=== PATIENT | female | born 1940 | race Caucasian/White ===

== ENCOUNTER 2019-06-06 20:10 | Emergency (ER) | payer MEDICARE, BC ==
[2019-06-06 20:19] VITALS: TEMP 98.2
--- NOTE | 2019-06-06 21:13 | ED ---
Chest Pain HPI - General Chief Complaint: Chest Pain Stated Complaint: CHEST TIGHTNESS Time Seen by Provider: 06/06/19 21:08 Source: patient Mode of arrival: ambulatory Limitations: no limitations - History of Present Illness Initial Comments: This patient is 78-year-old woman who presents to be evaluated for number of weeks of a feeling of tightness of her chest. She indicates the middle portion of the thoracic chest. She states it feels like it is wrapping around both sides. She has not noted worsening or relieving factors. The symptoms are co nstant and moderate intensity. She has not had any associated anginal symptoms, no dyspnea, diaphoresis, lightheadedness, palpitations or syncope. No nausea or vomiting. MD Complaint: chest pain -: week(s) Onset: during rest Pain Location: left chest, right chest Pain Radiation: none Severity: moderate Quality: tightness Consistency: constant Improves With: nothing Worsens With: nothing Treatments Prior to Arrival: none - Related Data Home Medications Medication Instructions Recorded Confirmed Alendronate Sodium [Fosamax] 70 mg PO MO 06/06/19 06/25/19 Armodafinil [Nuvigil] 50 mg PO DAILY 06/06/19 06/25/19 Carbidopa/Levodopa [Sinemet CR 1 tab PO TID 06/06/19 06/25/19 50-200 mg] Memantine HCl [Namenda] 5 mg PO DAILY 06/06/19 06/25/19 Metoclopramide HCl [Reglan] 5 mg PO DAILY PRN 06/06/19 06/25/19 Omeprazole [PriLOSEC] 20 mg PO DAILY 06/06/19 06/25/19 Rivastigmine 4.6MG/24Hr Patch 1 patch TRANSDERM DAILY 06/06/19 06/25/19 [Exelon 4.6MG/24Hr Patch] Allergies Allergy/AdvReac Type Severity Reaction Status Date / Time naproxen sodium [From Aleve] Allergy FIXED DRUG Verified 06/25/19 08:17 ERUPTION sulfamethoxazole Allergy FIXED DRUG Verified 06/25/19 08:17 [From Bactrim] ERUPTION trimethoprim [From Bactrim] Allergy FIXED DRUG Verified 06/25/19 08:17 ERUPTION Review of Systems ROS Statement: Those systems with pertinent positive or pertinent negative responses have been documented in the HPI. ROS Other: All systems not noted in ROS Statement are negative. Constitutional: Denies: fever, chills Respiratory: Denies: cough, dyspnea Cardiovascular: Reports: as per HPI, chest pain. Denies: palpitations, edema, syncope Gastrointestinal: Denies: abdominal pain, nausea, vomiting Genitourinary: Denies: dysuria, hematuria Musculoskeletal: Reports: as per HPI, back pain Skin: Denies: rash Neurological: Denies: headache, weakness, numbness EKG Findings - EKG Results: EKG: interpreted by ERMD, sinus rhythm, normal QRS, normal ST/T EKG shows: bradycardia (Rate 49 bpm) - Blocks, [place], Hypertrophy, ST Abn: QRS axis and voltage: left axis deviation (-30 to -90) Chamber hypertrophy or enlargement: left ventricular hypertrophy or enlargement (LVE) Past Medical History Past Medical History: Cancer, Dementia Additional Past Medical History / Comment(s): Breast CA, liver failure with resolution, Parkinsons, History of Any Multi-Drug Resistant Organisms: None Reported Past Surgical History: Hysterectomy Additional Past Surgical History / Comment(s): bilateral mastectomy, trigger finger right side Past Psychological History: No Psychological Hx Reported Smoking Status: Never smoker Past Alcohol Use History: Occasional Past Drug Use History: None Reported General Exam Limitations: no limitations General appearance: alert, in no apparent distress Head exam: Present: atraumatic, normocephalic Eye exam: Present: normal appearance. Absent: scleral icterus, conjunctival injection ENT exam: Present: normal oropharynx Neck exam: Present: normal inspection, full ROM Respiratory exam: Present: normal lung sounds bilaterally. Absent: respiratory distress, wheezes, rales, rhonchi, stridor, chest wall tenderness Cardiovascular Exam: Present: normal rhythm, bradycardia, normal heart sounds. Absent: systolic murmur, diastolic murmur, rubs, gallop GI/Abdominal exam: Present: soft. Absent: distended, tenderness, guarding, rebound, mass Extremities exam: Present: normal inspection, normal capillary refill. Absent: pedal edema, calf tenderness Back exam: Present: normal inspection, vertebral tenderness (Approximately T6 to T8 level.). Absent: CVA tenderness (R), CVA tenderness (L) Neurological exam: Present: alert. Absent: motor sensory deficit Skin exam: Present: warm, dry, intact, normal color. Absent: rash Course Vital Signs 06/06/19 06/06/19 06/06/19 20:14 22:30 23:47 Temperature 98.2 F 98.2 F Pulse Rate 50 L 54 L 53 L Respiratory 16 18 18 Rate Blood Pressure 127/62 152/72 119/77 O2 Sat by Pulse 98 97 99 Oximetry Chest Pain MDM - MDM This patient is 78-year-old woman who presents to be evaluated for a feeling of tightness that radiates from her back around both sides of her chest. She does have what appears to be new compression fracture at the level of her pain and suspect that this is a cause of her symptoms. Discussed the appropriate follow with the back specialist, as well as return parameters. Patient has had some relief of symptoms with Disposition Clinical Impression: Vertebral compression fracture, Chest pain Disposition: HOME SELF-CARE Condition: Good Instructions (If sedation given, give patient instructions): Vertebral Compression Fracture (ED) Is patient prescribed a controlled substance at d/c from ED?: No Referrals: Halie Cook MD [Primary Care Provider] - 1-2 days Harvey Coates DO [Doctor of Osteopathic Medicine] - 1-2 days
[2019-06-06 21:27] LABS: Basophils # (A) 0.1 k/uL (0-0.2); Basophils % (A) 2 %; Eosinophils # (A) 0.3 k/uL (0-0.7); Eosinophils % (A) 4 %; HCT 45.7 % (34.0-46.0); HGB 14.5 gm/dL (11.4-16.0); Lymphocytes # (A) 3.1 k/uL (1.0-4.8); Lymphocytes % (A) 38 %; MCH 31.3 pg (25.0-35.0); MCHC 31.7 g/dL (31.0-37.0); MCV 98.5 fL (80.0-100.0); Mean Platelet Volume 6.8; Monocytes # (A) 0.4 k/uL (0-1.0); Monocytes % (A) 4 %; Neutrophils % (A) 49 %; Platelet Count 223 k/uL (150-450); RBC 4.63 m/uL (3.80-5.40); RDW 12.8 % (11.5-15.5); WBC 8.1 k/uL (3.8-10.6)
[2019-06-06 21:36] LABS: Albumin 4.3 g/dL (3.5-5.0); Calcium 9.5 mg/dL (8.4-10.2); Magnesium 2.2 mg/dL (1.6-2.3); Total Bilirubin 0.3 mg/dL (0.2-1.3); Total Protein 7.3 g/dL (6.3-8.2)
[2019-06-06 21:41] LABS: D-Dimer 0.42 mg/L FEU (<0.60); INR 0.9 (<1.2); Partial Thromboplastin Time 23.2 sec (22.0-30.0); Prothrombin Time 10.1 sec (9.0-12.0)
--- NOTE | 2019-06-06 21:58 | XR ---
EXAMINATION TYPE: XR chest 2V DATE OF EXAM: 06/06/2019 COMPARISON: NONE HISTORY: Chest pain TECHNIQUE: Frontal and lateral views of the chest are obtained. FINDINGS: Heart and mediastinum are normal. Lungs are clear. Diaphragm is normal. There is osteopeni a. There is mild thoracic kyphosis. There is compression fracture of T6 and T5 up to 75%. There are c lips at the left axilla. IMPRESSION: No active cardiopulmonary disease.
[2019-06-06 22:48] VITALS: RESP 18
[2019-06-06 23:49] VITALS: BP 119/77; PULSE 53
== END 2019-06-06 23:47 | disposition home or self-care (01) ==
LOC: EC 20:10
DX: M48.54XA Collapsed vertebra, not elsewhere classified, thoracic region, initial encounter for fracture (principal); G20 Parkinson's disease; F02.80 Dementia in other diseases classified elsewhere, unspecified severity, without behavioral disturbance, psychotic disturbance, mood disturbance, and anxiety; K72.90 Hepatic failure, unspecified without coma; Z79.899 Other long term (current) drug therapy; Z88.6 Allergy status to analgesic agent; Z88.2 Allergy status to sulfonamides; Z88.1 Allergy status to other antibiotic agents; Z85.3 Personal history of malignant neoplasm of breast; Z90.13 Acquired absence of bilateral breasts and nipples
CPT/HCPCS: 36415; 71046; 80053; 82150; 83690; 83735; 84484; 85025; 85379; 85610; 85730; 93005; 99285

== ENCOUNTER → 2019-06-12 | Outpatient (CLI) | payer MEDICARE, BC ==
--- NOTE | 2019-06-12 15:26 | NM ---
EXAMINATION TYPE: NM bone scan whole body DATE OF EXAM: 06/12/2019 COMPARISON: PET/CT 2016. 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 History of breast cancer Delayed whole-body scanning was performed following the injection of 23 mCi Tc 99m MDP. Images acqui red 3 hours post injection. Images of entire spine in anterior posterior projection with additional p rojections of the thorax abdomen and pelvis. FINDINGS: There is marked uptake throughout single mid thoracic vertebra roughly T5 level corresponding to site of one of the compression type fracture deformities on outside x-ray favored more acute in age. Patti cent vertebra of compression show no radiotracer uptake. Mild uptake in lower lumbar spine is favored degenerative, correlate clinically. IMPRESSION: As above.
== END | disposition home or self-care (01) ==
LOC: RADNMMAIN 09:58
PROVIDERS: ATTEND Physical Medicine & Rehabilitation
DX: M47.814 Spondylosis without myelopathy or radiculopathy, thoracic region (principal); Z85.3 Personal history of malignant neoplasm of breast
CPT/HCPCS: 78306; A9503

== ENCOUNTER 2019-06-25 04:17 | Emergency (ER) | payer MEDICARE, BC ==
[2019-06-25 04:27] VITALS: TEMP 97.8
--- NOTE | 2019-06-25 04:52 | ED ---
Abdominal Pain HPI - General Chief Complaint: Abdominal Pain Stated Complaint: abd pain Time Seen by Provider: 06/25/19 04:30 Source: patient, family Mode of arrival: ambulatory - History of Present Illness Initial Comments: Patient is 78-year-old woman presenting with complaint of generalized abdominal pain and bloating. Also feeling as if she is constipated. Finally she states that when she checks her abdomen she feels a number of lumps there. Patient states that the lump feels tender as well. MD Complaint: abdominal pain -: week(s) Location: diffuse Migration to: periumbilical Severity: moderate Quality: cramping, fullness Consistency: constant Improves With: nothing Worsens With: nothing Associated Symptoms: denies other symptoms - Related Data Home Medications Medication Instructions Recorded Confirmed Alendronate Sodium [Fosamax] 70 mg PO MO 06/06/19 06/25/19 Armodafinil [Nuvigil] 50 mg PO DAILY 06/06/19 06/25/19 Carbidopa/Levodopa [Sinemet CR 1 tab PO TID 06/06/19 06/25/19 50-200 mg] Memantine HCl [Namenda] 5 mg PO DAILY 06/06/19 06/25/19 Metoclopramide HCl [Reglan] 5 mg PO DAILY PRN 06/06/19 06/25/19 Omeprazole [PriLOSEC] 20 mg PO DAILY 06/06/19 06/25/19 Rivastigmine 4.6MG/24Hr Patch 1 patch TRANSDERM DAILY 06/06/19 06/25/19 [Exelon 4.6MG/24Hr Patch] Previous Rx's Medication Instructions Recorded Docusate [Colace] 100 mg PO BID #60 capsule 06/25/19 Allergies Allergy/AdvReac Type Severity Reaction Status Date / Time naproxen sodium [From Aleve] Allergy FIXED DRUG Verified 06/25/19 08:17 ERUPTION sulfamethoxazole Allergy FIXED DRUG Verified 06/25/19 08:17 [From Bactrim] ERUPTION trimethoprim [From Bactrim] Allergy FIXED DRUG Verified 06/25/19 08:17 ERUPTION Review of Systems ROS Statement: Those systems with pertinent positive or pertinent negative responses have been documented in the HPI. ROS Other: All systems not noted in ROS Statement are negative. Constitutional: Denies: fever, chills Respiratory: Denies: cough, dyspnea Cardiovascular: Denies: chest pain, edema Gastrointestinal: Reports: abdominal pain, constipation. Denies: nausea, vomiting, diarrhea, melena, hematochezia Genitourinary: Denies: dysuria, hematuria Musculoskeletal: Reports: back pain (Compression fracture) Skin: Denies: rash Neurological: Denies: headache, weakness, numbness Past Medical History Past Medical History: Cancer, Dementia Additional Past Medical History / Comment(s): Breast CA, liver failure with resolution, Parkinsons, History of Any Multi-Drug Resistant Organisms: None Reported Past Surgical History: Hysterectomy Additional Past Surgical History / Comment(s): bilateral mastectomy, trigger finger right side Past Psychological History: No Psychological Hx Reported Smoking Status: Never smoker Past Alcohol Use History: Occasional Past Drug Use History: None Reported General Exam General appearance: alert, in no apparent distress Head exam: Present: atraumatic, normocephalic Eye exam: Present: normal appearance. Absent: scleral icterus, conjunctival injection Respiratory exam: Present: normal lung sounds bilaterally. Absent: respiratory distress, wheezes, rales, rhonchi, stridor Cardiovascular Exam: Present: regular rate, normal rhythm, normal heart sounds. Absent: systolic murmur, diastolic murmur, rubs, gallop GI/Abdominal exam: Present: soft, hyperactive bowel sounds, other (Patient's abdominal aorta is somewhat prominent). Absent: distended, guarding, rebound, rigid, mass, hernia Extremities exam: Present: normal inspection, normal capillary refill. Absent: pedal edema, calf tenderness Back exam: Present: normal inspection. Absent: CVA tenderness (R), CVA tenderness (L) Neurological exam: Present: alert Skin exam: Present: warm, dry, intact, normal color. Absent: rash Course Vital Signs 06/25/19 06/25/19 06/25/19 04:24 05:31 06:27 Temperature 97.8 F Pulse Rate 56 L 54 L 51 L Respiratory 16 16 17 Rate Blood Pressure 139/62 138/72 142/67 O2 Sat by Pulse 100 99 99 Oximetry 06/25/19 07:59 Temperature Pulse Rate 55 L Respiratory 17 Rate Blood Pressure 131/64 O2 Sat by Pulse 99 Oximetry Medical Decision Making - Medical Decision Making 78-year-old woman with a generalized abdominal pain and a feeling of mass in her abdomen. CT shows mainly that there is marked amount of stool throughout the colon. Discussed treatment and she would prefer to try taking GoLYTELY at home. Discussed return parameters - Lab Data Result diagrams: 06/25/19 05:11 06/25/19 05:11 Lab Results 06/25/19 06/25/19 06/25/19 Range/Units 05:11 05:11 05:11 WBC 6.1 (3.8-10.6) k/uL RBC 4.41 (3.80-5.40) m/uL Hgb 14.1 (11.4-16.0) gm/dL Hct 41.7 (34.0-46.0) % MCV 94.6 (80.0-100.0) fL MCH 32.0 (25.0-35.0) pg MCHC 33.9 (31.0-37.0) g/dL RDW 12.4 (11.5-15.5) % Plt Count 218 (150-450) k/uL Neutrophils % 51 % Lymphocytes % 37 % Monocytes % 6 % Eosinophils % 3 % Basophils % 1 % Neutrophils # 3.1 (1.3-7.7) k/uL Lymphocytes # 2.2 (1.0-4.8) k/uL Monocytes # 0.3 (0-1.0) k/uL Eosinophils # 0.2 (0-0.7) k/uL Basophils # 0.1 (0-0.2) k/uL Sodium 138 (137-145) mmol/L Potassium 4.0 (3.5-5.1) mmol/L Chloride 103 (98-107) mmol/L Carbon Dioxide 28 (22-30) mmol/L Anion Gap 7 mmol/L BUN 14 (7-17) mg/dL Creatinine 0.84 (0.52-1.04) mg/dL Est GFR (CKD-EPI)AfAm 78 (>60 ml/min/1.73 sqM) Est GFR (CKD-EPI)NonAf 67 (>60 ml/min/1.73 sqM) Glucose 98 (74-99) mg/dL Calcium 9.5 (8.4-10.2) mg/dL Total Bilirubin 0.4 (0.2-1.3) mg/dL AST 28 (14-36) U/L ALT 14 (9-52) U/L Alkaline Phosphatase 54 (38-126) U/L Total Protein 6.8 (6.3-8.2) g/dL Albumin 3.9 (3.5-5.0) g/dL Amylase 79 (30-110) U/L Lipase 152 (23-300) U/L Urine Color Light Yellow Urine Appearance Clear (Clear) Urine pH 7.0 (5.0-8.0) Ur Specific [place] 1.007 (1.001-1.035) Urine Protein Negative (Negative) Urine Glucose (UA) Negative (Negative) Urine Ketones Negative (Negative) Urine Blood Negative (Negative) Urine Nitrite Negative (Negative) Urine Bilirubin Negative (Negative) Urine Urobilinogen <2.0 (<2.0) mg/dL Ur Leukocyte Esterase Negative (Negative) Disposition Clinical Impression: Constipation Disposition: HOME SELF-CARE Condition: Good Prescriptions: Docusate [Colace] 100 mg PO BID #60 capsule Is patient prescribed a controlled substance at d/c from ED?: No Referrals: Halie Cook MD [Primary Care Provider] - 1-2 days
[2019-06-25 05:22] LABS: Appearance,Urine Clear (Clear); Basophils # (A) 0.1 k/uL (0-0.2); Basophils % (A) 1 %; Bilirubin,Urine Negative (Negative); Blood,Urine Negative (Negative); Color,Urine Light Yellow; Eosinophils # (A) 0.2 k/uL (0-0.7); Eosinophils % (A) 3 %; Glucose,Urine (UA) Negative (Negative); HCT 41.7 % (34.0-46.0); HGB 14.1 gm/dL (11.4-16.0); Ketones,Urine Negative (Negative); Leukocyte Esterase,Urine Negative (Negative); Lymphocytes # (A) 2.2 k/uL (1.0-4.8); Lymphocytes % (A) 37 %; MCHC 33.9 g/dL (31.0-37.0); MCV 94.6 fL (80.0-100.0); Mean Platelet Volume 6.2; Monocytes # (A) 0.3 k/uL (0-1.0); Monocytes % (A) 6 %; Neutrophils # (A) 3.1 k/uL (1.3-7.7); Neutrophils % (A) 51 %; Nitrite,Urine Negative (Negative); Platelet Count 218 k/uL (150-450); Protein,Urine Negative (Negative); RBC 4.41 m/uL (3.80-5.40); RDW 12.4 % (11.5-15.5); Specific Gravity,Urine 1.007 (1.001-1.035); Urobilinogen,Urine <2.0 mg/dL (<2.0); WBC 6.1 k/uL (3.8-10.6)
[2019-06-25 05:34] LABS: Albumin 3.9 g/dL (3.5-5.0); Calcium 9.5 mg/dL (8.4-10.2); Total Bilirubin 0.4 mg/dL (0.2-1.3); Total Protein 6.8 g/dL (6.3-8.2)
[2019-06-25 08:00] VITALS: PULSE 55
--- NOTE | 2019-06-25 08:24 | CT ---
EXAMINATION TYPE: CT angio abdomen pelvis DATE OF EXAM: 06/25/2019 COMPARISON: Correlation PET/CT 03/12/2016 HISTORY: 78-year-old female with lower abdominal pain, history of breast CA TECHNIQUE: Contiguous axial scanning of the abdomen and pelvis before and after administration of 100 ml Isovue-370 IV contrast. Coronal/sagittal MIP reconstructions performed. 3-D reconstructions gene rated on a dedicated workstation. CT DLP: 791.4 mGycm Automated exposure control for dose reduction was used. FINDINGS: Heart normal size without pericardial effusion. Coronary vessel calcifications are present. Ectatic ascending aorta at 3.8 cm. Some strandy dependent atelectasis. Noncontrast and arterial phase imaging of the liver, right adrenal gland, kidneys, spleen, and pancre as show no gross abnormal body. Mild diffuse thickening of the left adrenal gland appears more pronounced from 2016 and can be reasse ssed in 6 months. Cholelithiasis with calculi measuring up to 1.5 cm. No abnormal gallbladder distention. No dilated small bowel, free fluid, or free air. No mesenteric or retroperitoneal lymphadenopathy. A 9 mm nodule along the right sided omentum was present back in 2016, likely some type of chronic posti nflammatory etiology. Normal appendix. Scattered [id number] stool. Occasional sigmoid diverticulosis. No pericolonic inflammatory change. Scattered mild to moderate at this chronic calcifications abdominal aorta and iliac arteries. Mild atherosclerotic narrowing at the origin of the celiac axis. Mild atelectatic narrowing at the origin of the SMA and moderate episodic narrowing of the origin of the single right renal artery. JAN is patent. No evidence for abdominal aortic dissection or aneurysm. A circumferential bladder wall thickening. Pelvic phleboliths. Uterus surgically absent. No abnormal fluid collection in the pelvis or pelvic lymphadenopathy seen. Bones: Degenerative changes of the hips. 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 Osteope josh. Subcutaneous calcifications along the bilateral buttocks unchanged possibly relating to prior tr auma or injections. IMPRESSION: 1. SIGMOID DIVERTICULOSIS WITHOUT EVIDENCE FOR ACUTE DIVERTICULITIS. 2. MILD CIRCUMFERENTIAL BLADDER WALL THICKENING. CORRELATE TO EXCLUDE CYSTITIS. 3. NO AORTIC ANEURYSM OR ABDOMINAL AORTIC DISSECTION. MODERATE ATHEROSCLEROTIC NARROWING AT THE ORIGI N OF THE RIGHT RENAL ARTERY. MILD NARROWING AT THE ORIGIN OF BOTH CELIAC AXIS AND SMA. 4. MILD DIFFUSE THICKENING OF THE LEFT ADRENAL GLAND MORE PRONOUNCED FROM 2016, POSSIBLY SECONDARY TO UNDERLYING ADRENAL HYPERPLASIA. SIX-MONTH FOLLOW-UP COULD REASSESS. 5. CHOLELITHIASIS. 6. ADVANCED DEGENERATIVE CHANGES MID TO LOWER LUMBAR SPINE ABOVE.
[2019-06-25] MEDS ORDERED: PEG 3350-NA SULF,BICARB,CL/KCL 4,000 ML BOTTLE PO ONE (08:32)
[2019-06-25 09:04] VITALS: BP 134/63; RESP 16
== END 2019-06-25 09:03 | disposition home or self-care (01) ==
LOC: EC 04:17
DX: K59.00 Constipation, unspecified (principal); R19.12 Hyperactive bowel sounds; G20 Parkinson's disease; F02.80 Dementia in other diseases classified elsewhere, unspecified severity, without behavioral disturbance, psychotic disturbance, mood disturbance, and anxiety; Z88.2 Allergy status to sulfonamides; Z88.6 Allergy status to analgesic agent; Z79.899 Other long term (current) drug therapy; Z85.3 Personal history of malignant neoplasm of breast; Z90.13 Acquired absence of bilateral breasts and nipples
CPT/HCPCS: 36415; 80053; 82150; 83690; 85025; 81003; 74174; 99284; Q9967

== ENCOUNTER 2019-06-28 09:08 | Emergency (ER) | payer MEDICARE, BC ==
[2019-06-28 09:15] VITALS: BP 138/66; PULSE 53; RESP 16; TEMP 97.4
--- NOTE | 2019-06-28 10:00 | XR ---
EXAMINATION TYPE: XR KUB DATE OF EXAM: 06/28/2019 COMPARISON: None INDICATION: Constipation TECHNIQUE: Single view abdomen upright view FINDINGS: There is a normal bowel gas pattern. Psoas margins are normal. No organomegaly is present. Scoliosis is present. There are couple large calcifications measuring 1.0 cm and the right midabdomen. Slightly inferior an d lateral are several small grouped calcifications cover an area approximately 1.4 cm. These 2 groups of calcifications appear outside the renal shadow but appear to correspond to cholelithiasis from e CTA 06/25/2019. IMPRESSION: 1. Cholelithiasis. 2. No suspicious abdominal process.
--- NOTE | 2019-06-28 11:18 | ED ---
General Adult HPI - General Chief complaint: Abdominal Pain Stated complaint: Abd Pain Time Seen by Provider: 06/28/19 09:10 Source: patient, RN notes reviewed Mode of arrival: ambulatory Limitations: no limitations - History of Present Illness Initial comments: This is a 78-year-old female presents emergency Department stating that she was here couple days ago and they told her she was constipated. Patient states she's had a little bit of bowel movement home but continues to multiple different laxatives and has not had a lot of stool so she thinks she still constipated. Patient currently denies any abdominal pain. Patient denies any fever chills per patient denies any chest pain or difficulty breathing. Patient is poor historian but the is giving most of the history secondary to the patient's dementia. Patient currently states she just feels uptight now but has no abdominal pain. Patient denies any dysuria hematuria or frequency. Patient denies any back pain. - Related Data Home Medications Medication Instructions Recorded Confirmed Alendronate Sodium [Fosamax] 70 mg PO MO 06/06/19 06/25/19 Armodafinil [Nuvigil] 50 mg PO DAILY 06/06/19 06/25/19 Carbidopa/Levodopa [Sinemet CR 1 tab PO TID 06/06/19 06/25/19 50-200 mg] Memantine HCl [Namenda] 5 mg PO DAILY 06/06/19 06/25/19 Metoclopramide HCl [Reglan] 5 mg PO DAILY PRN 06/06/19 06/25/19 Omeprazole [PriLOSEC] 20 mg PO DAILY 06/06/19 06/25/19 Rivastigmine 4.6MG/24Hr Patch 1 patch TRANSDERM DAILY 06/06/19 06/25/19 [Exelon 4.6MG/24Hr Patch] Previous Rx's Medication Instructions Recorded Docusate [Colace] 100 mg PO BID #60 capsule 06/25/19 Allergies Allergy/AdvReac Type Severity Reaction Status Date / Time naproxen sodium [From Aleve] Allergy FIXED DRUG Verified 06/28/19 09:09 ERUPTION sulfamethoxazole Allergy FIXED DRUG Verified 06/28/19 09:09 [From Bactrim] ERUPTION trimethoprim [From Bactrim] Allergy FIXED DRUG Verified 06/28/19 09:09 ERUPTION Review of Systems ROS Statement: Those systems with pertinent positive or pertinent negative responses have been documented in the HPI. ROS Other: All systems not noted in ROS Statement are negative. Past Medical History Past Medical History: Cancer, Dementia Additional Past Medical History / Comment(s): Breast CA, liver failure with resolution, Parkinsons, History of Any Multi-Drug Resistant Organisms: None Reported Past Surgical History: Hysterectomy Additional Past Surgical History / Comment(s): bilateral mastectomy, trigger finger right side Past Psychological History: No Psychological Hx Reported Smoking Status: Never smoker Past Alcohol Use History: Occasional Past Drug Use History: None Reported General Exam - General Exam Comments Initial Comments: GENERAL: Patient is well-developed and well-nourished. Patient is nontoxic and well- hydrated and is in no acute distress. ENT: Neck is soft and supple. No significant lymphadenopathy is noted. Oropharynx is clear. Moist mucous membranes. Neck has full range of motion without eliciting any pain. EYES: The sclera were anicteric and conjunctiva were pink and moist. Extraocular movements were intact and pupils were equal round and reactive to light. Eyelids were unremarkable. PULMONARY: Unlabored respirations. Good breath sounds bilaterally. No audible rales rhonchi or wheezing was noted. CARDIOVASCULAR: There is a regular rate and rhythm without any murmurs gallops or rubs. ABDOMEN: Soft and nontender with normal bowel sounds. No palpable organomegaly was noted. There is no palpable pulsatile mass. SKIN: Skin is clear with no lesions or rashes and otherwise unremarkable. NEUROLOGIC: Patient is alert and oriented x3. Cranial nerves II through XII are grossly intact. Motor and sensory are also intact. Normal speech, volume and content. Symmetrical smile. MUSCULOSKELETAL: Normal extremities with adequate strength and full range of motion. LYMPHATICS: No significant lymphadenopathy is noted PSYCHIATRIC: Normal psychiatric evaluation. Limitations: no limitations Course Vital Signs 06/28/19 09:09 Temperature 97.4 F L Pulse Rate 53 L Respiratory 16 Rate Blood Pressure 138/66 O2 Sat by Pulse 100 Oximetry Medical Decision Making - Medical Decision Making KUB was in Gen. negative. Patient and were requesting an enema so an enema was performed. Patient had very good results after the enema. I will back into reevaluate the patient she was having no complaints this time Disposition Clinical Impression: Constipation Disposition: HOME SELF-CARE Instructions (If sedation given, give patient instructions): Constipation (ED), High Fiber Diet (ED) Is patient prescribed a controlled substance at d/c from ED?: No Referrals: Halie Cook MD [Primary Care Provider] - 1-2 days Time of Disposition: 12:18
== END 2019-06-28 12:25 | disposition home or self-care (01) ==
LOC: EC 09:08
DX: K59.00 Constipation, unspecified (principal); F02.80 Dementia in other diseases classified elsewhere, unspecified severity, without behavioral disturbance, psychotic disturbance, mood disturbance, and anxiety; G20 Parkinson's disease; Z79.899 Other long term (current) drug therapy; Z88.1 Allergy status to other antibiotic agents; Z88.2 Allergy status to sulfonamides; Z88.6 Allergy status to analgesic agent; Z85.3 Personal history of malignant neoplasm of breast; Z90.13 Acquired absence of bilateral breasts and nipples
CPT/HCPCS: 74018; 99284

== ENCOUNTER 2019-09-02 12:36 | Emergency (ER) | payer MEDICARE, BC ==
--- NOTE | 2019-09-02 13:38 | ED ---
General Adult HPI - General Chief complaint: Altered Mental Status Stated complaint: altered mental status Time Seen by Provider: 09/02/19 13:13 Source: patient, family Mode of arrival: ambulatory Limitations: altered mental status - History of Present Illness Initial comments: Dictation was produced using [employer] dictation software. please excuse any grammatical, word or spelling errors. Chief Complaint: 79-year-old female past medical history of Parkinson's dementia presents with progressive behavior. History of Present Illness: 79-year-old female. She has a history of Parkinson's dementia. Patient is baseline confused. She is brought in by for concerns of her behavior. Today patient has been having anxiety and confusion worse than her usual baseline. She was in a car with her and her reports that she was claiming that she was in the wrong vehicle. Patient went into the drugstore came back outside to the parking lot patient was seen is another person's vehicle. According to patient is not showing any signs of auditory or visual hallucinations. Since being in emergency department patient has been much more at her baseline. Recently she was seen by her neurologist and was given when necessary anxiolytic medications that she is prescribed to take every day and sometimes twice a day on a when necessary basis. Patient is currently at her baseline. attempted to call ne urologist office however they did not return their call that he decided come to the emergency department for medical evaluation. Patient is prescribed Parkinson's medications The ROS documented in this emergency department record has been reviewed and confirmed by me. Those systems with pertinent positive or negative responses have been documented in the HPI. All other systems are other negative and/or noncontributory. PHYSICAL EXAM: General Impression: Alert and oriented x3, not in acute distress, mild tremors HEENT: Normocephalic atraumatic, extra-ocular movements intact, pupils equal and reactive to light bilaterally, mucous membranes moist. Cardiovascular: Heart regular rate and rhythm, S1&S2 audible, no murmurs, rubs or gallops Chest: Lungs clear to auscultation bilaterally, no rhonchi, no wheeze, no rales Abdomen: Bowel sounds present, abdomen soft, non-tender, non-distended, no organomegaly Musculoskeletal: Pulses present and equal in all extremities, no peripheral edema Motor: no focal deficits noted Neurological: CN II-XII grossly intact, no focal motor or sensory deficits noted Skin: Intact with no visualized rashes Psych: Normal affect and mood ED course: 73-year-old female with past medical history of Parkinson's dementia presents with behavioral abnormalities. Patient appears benign at bedside currently. Signs upon arrival are within acceptable limits. Patient is pleasant, calm and cooperative at bedside currently. Laboratory evaluation obtained. CBC, coag panel, metabolic panel is unremarkable. Urinalysis is negative. EKGs benign. Patient is well-appearing and observed in emergency department for a couple hours with no changes in mental status. She is cool, and cooperative. reports that he did receive a phone call from the neurologist who just refilled patient's anxiety medications. is agreeable for discharge. Temperature was discussed. Patient's click or presentation likely secondary to dementia exacerbation. At this point there is no identifiable medical emergency. She has no high-risk features. EKG interpretation: Ventricular rate 63, normal sinus rhythm,. Interval 120, Q 74, QTc 386. No [place] prolongation, no QTC prolongation, no ST or T-wave changes noted. EKG compared to 06/06/2019 showing no changes. Overall, this EKG is unremarkable - Related Data Home Medications Medication Instructions Recorded Confirmed Alendronate Sodium [Fosamax] 70 mg PO MO 06/06/19 06/25/19 Armodafinil [Nuvigil] 50 mg PO DAILY 06/06/19 06/25/19 Carbidopa/Levodopa [Sinemet CR 1 tab PO TID 06/06/19 06/25/19 50-200 mg] Memantine HCl [Namenda] 5 mg PO DAILY 06/06/19 06/25/19 Metoclopramide HCl [Reglan] 5 mg PO DAILY PRN 06/06/19 06/25/19 Omeprazole [PriLOSEC] 20 mg PO DAILY 06/06/19 06/25/19 Rivastigmine 4.6MG/24Hr Patch 1 patch TRANSDERM DAILY 06/06/19 06/25/19 [Exelon 4.6MG/24Hr Patch] Previous Rx's Medication Instructions Recorded Docusate [Colace] 100 mg PO BID #60 capsule 06/25/19 Allergies Allergy/AdvReac Type Severity Reaction Status Date / Time naproxen sodium [From Aleve] Allergy FIXED DRUG Verified 09/02/19 14:09 ERUPTION sulfamethoxazole Allergy FIXED DRUG Verified 09/02/19 14:09 [From Bactrim] ERUPTION trimethoprim [From Bactrim] Allergy FIXED DRUG Verified 09/02/19 14:09 ERUPTION Review of Systems ROS Statement: Those systems with pertinent positive or pertinent negative responses have been documented in the HPI. ROS Other: All systems not noted in ROS Statement are negative. Past Medical History Past Medical History: Cancer, Dementia Additional Past Medical History / Comment(s): Breast CA, liver failure with resolution, Parkinsons, History of Any Multi-Drug Resistant Organisms: None Reported Past Surgical History: Hysterectomy Additional Past Surgical History / Comment(s): bilateral mastectomy, trigger finger right side Past Psychological History: No Psychological Hx Reported Smoking Status: Never smoker Past Alcohol Use History: Occasional Past Drug Use History: None Reported General Exam Limitations: altered mental status Course Vital Signs 09/02/19 09/02/19 09/02/19 12:51 12:58 13:13 Temperature 98.7 F 98.6 F Pulse Rate 63 69 Respiratory 16 17 19 Rate Blood Pressure 139/82 138/78 O2 Sat by Pulse 100 99 Oximetry 09/02/19 13:54 Temperature 98.0 F Pulse Rate 55 L Respiratory 15 Rate Blood Pressure 126/94 O2 Sat by Pulse 94 L Oximetry Medical Decision Making - Lab Data Result diagrams: 09/02/19 13:16 09/02/19 13:16 Lab Results 09/02/19 09/02/19 09/02/19 Range/Units 13:16 13:16 13:16 WBC 7.4 (3.8-10.6) k/uL RBC 4.80 (3.80-5.40) m/uL Hgb 15.1 (11.4-16.0) gm/dL Hct 46.1 H (34.0-46.0) % MCV 96.1 (80.0-100.0) fL MCH 31.6 (25.0-35.0) pg MCHC 32.8 (31.0-37.0) g/dL RDW 12.7 (11.5-15.5) % Plt Count 247 (150-450) k/uL Neutrophils % 54 % Lymphocytes % 37 % Monocytes % 5 % Eosinophils % 2 % Basophils % 1 % Neutrophils # 4.0 (1.3-7.7) k/uL Lymphocytes # 2.7 (1.0-4.8) k/uL Monocytes # 0.3 (0-1.0) k/uL Eosinophils # 0.1 (0-0.7) k/uL Basophils # 0.0 (0-0.2) k/uL PT 10.3 (9.0-12.0) sec INR 1.0 (<1.2) APTT 23.3 (22.0-30.0) sec Sodium 139 (137-145) mmol/L Potassium 4.8 (3.5-5.1) mmol/L Chloride 104 (98-107) mmol/L Carbon Dioxide 27 (22-30) mmol/L Anion Gap 8 mmol/L BUN 22 H (7-17) mg/dL Creatinine 0.85 (0.52-1.04) mg/dL Est GFR (CKD-EPI)AfAm 76 (>60 ml/min/1.73 sqM) Est GFR (CKD-EPI)NonAf 66 (>60 ml/min/1.73 sqM) Glucose 85 (74-99) mg/dL POC Glucose (mg/dL) (75-99) mg/dL POC Glu Tabulating Clerk ID Calcium 10.2 (8.4-10.2) mg/dL Total Bilirubin 0.6 (0.2-1.3) mg/dL AST 25 (14-36) U/L ALT <6 (4-34) U/L Alkaline Phosphatase 58 (38-126) U/L Troponin I (0.000-0.034) ng/mL Total Protein 7.2 (6.3-8.2) g/dL Albumin 4.3 (3.5-5.0) g/dL Urine Color Urine Appearance (Clear) Urine pH (5.0-8.0) Ur Specific [place] (1.001-1.035) Urine Protein (Negative) Urine Glucose (UA) (Negative) Urine Ketones (Negative) Urine Blood (Negative) Urine Nitrite (Negative) Urine Bilirubin (Negative) Urine Urobilinogen (<2.0) mg/dL Ur Leukocyte Esterase (Negative) Urine RBC (0-5) /hpf Urine WBC (0-5) /hpf Ur Squamous Epith Cells (0-4) /hpf Urine Bacteria (None) /hpf Hyaline Casts (0-2) /lpf Urine Mucus (None) /hpf 09/02/19 09/02/19 09/02/19 Range/Units 13:16 13:47 14:10 WBC (3.8-10.6) k/uL RBC (3.80-5.40) m/uL Hgb (11.4-16.0) gm/dL Hct (34.0-46.0) % MCV (80.0-100.0) fL MCH (25.0-35.0) pg MCHC (31.0-37.0) g/dL RDW (11.5-15.5) % Plt Count (150-450) k/uL Neutrophils % % Lymphocytes % % Monocytes % % Eosinophils % % Basophils % % Neutrophils # (1.3-7.7) k/uL Lymphocytes # (1.0-4.8) k/uL Monocytes # (0-1.0) k/uL Eosinophils # (0-0.7) k/uL Basophils # (0-0.2) k/uL PT (9.0-12.0) sec INR (<1.2) APTT (22.0-30.0) sec Sodium (137-145) mmol/L Potassium (3.5-5.1) mmol/L Chloride (98-107) mmol/L Carbon Dioxide (22-30) mmol/L Anion Gap mmol/L BUN (7-17) mg/dL Creatinine (0.52-1.04) mg/dL Est GFR (CKD-EPI)AfAm (>60 ml/min/1.73 sqM) Est GFR (CKD-EPI)NonAf (>60 ml/min/1.73 sqM) Glucose (74-99) mg/dL POC Glucose (mg/dL) 88 (75-99) mg/dL POC Glu Tabulating Clerk ID Aaron Gutierrez Calcium (8.4-10.2) mg/dL Total Bilirubin (0.2-1.3) mg/dL AST (14-36) U/L ALT (4-34) U/L Alkaline Phosphatase (38-126) U/L Troponin I <0.012 (0.000-0.034) ng/mL Total Protein (6.3-8.2) g/dL Albumin (3.5-5.0) g/dL Urine Color Yellow Urine Appearance Clear (Clear) Urine pH 7.0 (5.0-8.0) Ur Specific [place] 1.014 (1.001-1.035) Urine Protein Negative (Negative) Urine Glucose (UA) Negative (Negative) Urine Ketones 1+ H (Negative) Urine Blood Negative (Negative) Urine Nitrite Negative (Negative) Urine Bilirubin Negative (Negative) Urine Urobilinogen <2.0 (<2.0) mg/dL Ur Leukocyte Esterase Trace H (Negative) Urine RBC 1 (0-5) /hpf Urine WBC 1 (0-5) /hpf Ur Squamous Epith Cells <1 (0-4) /hpf Urine Bacteria Rare H (None) /hpf Hyaline Casts 1 (0-2) /lpf Urine Mucus Rare H (None) /hpf Disposition Clinical Impression: Altered mental status, Dementia Disposition: HOME SELF-CARE Condition: Good Instructions (If sedation given, give patient instructions): Altered Mental Status (ED) Is patient prescribed a controlled substance at d/c from ED?: No Referrals: Belle Cristina MD [Primary Care Provider] - 1-2 days Janna Ulrich MD [Medical Doctor] - 1-2 days Time of Disposition: 14:40
[2019-09-02 13:48] LABS: Basophils % (A) 1 %; Eosinophils # (A) 0.1 k/uL (0-0.7); Eosinophils % (A) 2 %; HCT 46.1 % (34.0-46.0); HGB 15.1 gm/dL (11.4-16.0); Lymphocytes # (A) 2.7 k/uL (1.0-4.8); Lymphocytes % (A) 37 %; MCH 31.6 pg (25.0-35.0); MCHC 32.8 g/dL (31.0-37.0); MCV 96.1 fL (80.0-100.0); Mean Platelet Volume 7.5; Monocytes # (A) 0.3 k/uL (0-1.0); Monocytes % (A) 5 %; Neutrophils % (A) 54 %; Platelet Count 247 k/uL (150-450); RDW 12.7 % (11.5-15.5); WBC 7.4 k/uL (3.8-10.6)
[2019-09-02 13:49] LABS: Glucose,Whole Blood 88 mg/dL (75-99)
[2019-09-02 13:55] LABS: Partial Thromboplastin Time 23.3 sec (22.0-30.0); Prothrombin Time 10.3 sec (9.0-12.0)
[2019-09-02 14:03] LABS: ALT <6 U/L (4-34); AST 25 U/L (14-36); African American GFR (CKD) 76 (>60 ml/min/1.73 sqM); Albumin 4.3 g/dL (3.5-5.0); Alkaline Phosphatase 58 U/L (38-126); Anion Gap 8 mmol/L; Blood Urea Nitrogen 22 mg/dL (7-17); Calcium 10.2 mg/dL (8.4-10.2); Carbon Dioxide 27 mmol/L (22-30); Chloride 104 mmol/L (98-107); Glucose 85 mg/dL (74-99); Non-African American GFR(CKD) 66 (>60 ml/min/1.73 sqM); Potassium 4.8 mmol/L (3.5-5.1); Sodium 139 mmol/L (137-145); Total Bilirubin 0.6 mg/dL (0.2-1.3); Total Protein 7.2 g/dL (6.3-8.2)
[2019-09-02 14:24] LABS: Appearance,Urine Clear (Clear); Bacteria,Urine Rare /hpf; Bilirubin,Urine Negative (Negative); Blood,Urine Negative (Negative); Color,Urine Yellow; Glucose,Urine (UA) Negative (Negative); Hyaline Casts,Urine 1 /lpf (0-2); Ketones,Urine 1+ (Negative); Leukocyte Esterase,Urine Trace (Negative); Mucus,Urine Rare /hpf; Nitrite,Urine Negative (Negative); Protein,Urine Negative (Negative); RBC,Urine 1 /hpf (0-5); Specific Gravity,Urine 1.014 (1.001-1.035); Squamous Epithelial Cell,Urine <1 /hpf (0-4); Urobilinogen,Urine <2.0 mg/dL (<2.0); WBC,Urine 1 /hpf (0-5)
[2019-09-02 14:30] VITALS: TEMP 98
[2019-09-02 14:54] VITALS: BP 129/74; PULSE 63; RESP 17
== END 2019-09-02 14:54 | disposition home or self-care (01) ==
LOC: EC 12:36
DX: F02.80 Dementia in other diseases classified elsewhere, unspecified severity, without behavioral disturbance, psychotic disturbance, mood disturbance, and anxiety (principal); G20 Parkinson's disease; F41.9 Anxiety disorder, unspecified; Z88.2 Allergy status to sulfonamides; Z88.6 Allergy status to analgesic agent; Z79.899 Other long term (current) drug therapy; Z85.3 Personal history of malignant neoplasm of breast; Z90.13 Acquired absence of bilateral breasts and nipples
CPT/HCPCS: 36415; 80053; 81001; 84484; 85025; 85610; 85730; 99285

== ENCOUNTER 2020-06-10 15:20 | Inpatient (IN) | payer MEDICARE, BC ==
[2020-06-10] MEDS ORDERED: SODIUM CHLORIDE 0.9% 1,000 ML IV STA (15:46)
--- NOTE | 2020-06-10 15:51 | ED ---
Weakness HPI <Kike Mike - Last Filed: 06/10/20 18:40> - General Source: EMS, RN notes reviewed, old records reviewed Mode of arrival: EMS Limitations: no limitations <Olivia Govea - Last Filed: 06/10/20 19:08> - General Chief complaint: Weakness Stated complaint: lethargic Time Seen by Provider: 06/10/20 15:25 - History of Present Illness Initial comments: Kirstie is a 79-year-old female with a history of Parkinson's and dementia who presents the emergency department today with an episode of unresponsiviness and significant lethargy. Patient was at her adult daycare facility and was sleeping in a chair. The director and nurse tried to wake her and were unable to. They called the patient's who came to the facility and he was unable to wake her. Eventually manager work were called and she responded to a sternal rub. She has had no significant adjustments to medication besides increasing risperdal at night. reports he manages her medication and could not have changed her dosages. Patient's reports that last night she did wet the bed a significant amount with urine which is unusual for her. Patient has been states with history of dementia she seems to be at her baseline with answering questions but still very lethargic. (Olivia Govea) - Related Data Home Medications Medication Instructions Recorded Confirmed Alendronate Sodium [Fosamax] 70 mg PO MO 06/06/19 06/10/20 Carbidopa/Levodopa [Sinemet CR 1 tab PO BID 06/06/19 06/10/20 50-200 mg] Memantine HCl [Namenda] 5 mg PO DAILY 06/06/19 06/10/20 Cholecalciferol [Vitamin D3 (25 1,000 unit PO DAILY 09/02/19 06/10/20 Mcg = 1000 Iu)] Mirabegron [Myrbetriq] 50 mg PO DAILY 06/10/20 06/10/20 Pimavanserin Tartrate [Nuplazid] 34 mg PO DAILY 06/10/20 06/10/20 risperiDONE [RisperDAL] 0.5 mg PO BID 06/10/20 06/10/20 Allergies Allergy/AdvReac Type Severity Reaction Status Date / Time naproxen sodium [From Aleve] Allergy FIXED DRUG Verified 09/02/19 14:09 ERUPTION sulfamethoxazole Allergy FIXED DRUG Verified 09/02/19 14:09 [From Bactrim] ERUPTION Review of Systems ROS Other: All systems not noted in ROS Statement are negative. <MikeKike - Last Filed: 06/10/20 18:40> ROS Other: All systems not noted in ROS Statement are negative. <Olivia Govea - Last Filed: 06/10/20 19:08> ROS Statement: Those systems with pertinent positive or pertinent negative responses have been documented in the HPI. Past Medical History Past Medical History: Cancer, Dementia Additional Past Medical History / Comment(s): Breast CA, liver failure with resolution, Parkinsons, History of Any Multi-Drug Resistant Organisms: None Reported Past Surgical History: Hysterectomy Additional Past Surgical History / Comment(s): bilateral mastectomy, trigger finger right side Past Psychological History: No Psychological Hx Reported Smoking Status: Never smoker Past Alcohol Use History: None Reported Past Drug Use History: None Reported <Olivia Govea - Last Filed: 06/10/20 19:08> General Exam Limitations: no limitations General appearance: alert, in no apparent distress Head exam: Present: atraumatic, normocephalic, normal inspection Eye exam: Present: normal appearance, PERRL, EOMI. Absent: scleral icterus, conjunctival injection, periorbital swelling ENT exam: Present: normal exam, mucous membranes moist Neck exam: Present: normal inspection. Absent: tenderness, meningismus, lymphadenopathy Respiratory exam: Present: normal lung sounds bilaterally. Absent: respiratory distress, wheezes, rales, rhonchi, stridor Cardiovascular Exam: Present: regular rate, normal rhythm, normal heart sounds. Absent: systolic murmur, diastolic murmur, rubs, gallop, clicks GI/Abdominal exam: Present: soft, normal bowel sounds. Absent: distended, tenderness, guarding, rebound, rigid Extremities exam: Present: normal inspection, full ROM, normal capillary refill. Absent: tenderness, pedal edema, joint swelling, calf tenderness Back exam: Present: normal inspection Neurological exam: Present: alert, oriented X3, CN II-XII intact Psychiatric exam: Present: normal affect, normal mood <Olivia Govea - Last Filed: 06/10/20 19:08> - General Exam Comments Initial Comments: Pt is a weak and lethargic 79-year-old female. (Olivia Govea) Course Vital Signs 06/10/20 06/10/20 15:24 18:22 Temperature 98.8 F Pulse Rate 78 73 Respiratory 16 16 Rate Blood Pressure 151/99 137/82 O2 Sat by Pulse 98 96 Oximetry Medical Decision Making - Lab Data Result diagrams: 06/10/20 15:52 06/10/20 15:52 <Kike Mike - Last Filed: 06/10/20 18:40> - Lab Data Result diagrams: 06/10/20 15:52 06/10/20 15:52 - Radiology Data Radiology results: report reviewed <CarolynyanelisOlivia - Last Filed: 06/10/20 19:08> - Medical Decision Making Patient reevaluated and reexamined by myself, Dr. Mike. I do agree with PA findings. This includes diagnostic interpretation and treatment plan. Patient did have an episode earlier today of unresponsiveness lasting around 15 minutes. states patient is still somewhat slow to respond. We did try to get patient up and and really however she was not able to do this without assistance. Case was discussed in detail with Dr. Orozco, covering for Dr. Teague, who will admit. (Kike Mike) 79-year-old feel presenting emergency department today for unresponsive episode. Patient presents emergency Department somewhat lethargic. She has history of dementia and Parkinson's. reports signs of lethargy she is at baseline for answering questions. Patient EKG was reviewed and no acute changes. Patient has no acute neurological deficits. CT of the brain is read negative for acute process. Patient's labs are otherwise unremarkable. Patient was attempted to ambulate and required significant assistance. This is not her baseline. is concerned to take her home. Patient will be admitted at this time consults for neurology. (Olivia Govea) - Lab Data Lab Results 06/10/20 06/10/20 06/10/20 Range/Units 15:52 15:52 15:52 WBC 6.9 (3.8-10.6) k/uL RBC 4.50 (3.80-5.40) m/uL Hgb 14.3 (11.4-16.0) gm/dL Hct 43.8 (34.0-46.0) % MCV 97.2 (80.0-100.0) fL MCH 31.8 (25.0-35.0) pg MCHC 32.7 (31.0-37.0) g/dL RDW 12.6 (11.5-15.5) % Plt Count 198 (150-450) k/uL Neutrophils % 61 % Lymphocytes % 28 % Monocytes % 6 % Eosinophils % 2 % Basophils % 1 % Neutrophils # 4.2 (1.3-7.7) k/uL Lymphocytes # 1.9 (1.0-4.8) k/uL Monocytes # 0.4 (0-1.0) k/uL Eosinophils # 0.1 (0-0.7) k/uL Basophils # 0.0 (0-0.2) k/uL PT 9.6 (9.0-12.0) sec INR 0.9 (<1.2) APTT 21.7 L (22.0-30.0) sec Sodium (137-145) mmol/L Potassium (3.5-5.1) mmol/L Chloride (98-107) mmol/L Carbon Dioxide (22-30) mmol/L Anion Gap mmol/L BUN (7-17) mg/dL Creatinine (0.52-1.04) mg/dL Est GFR (CKD-EPI)AfAm (>60 ml/min/1.73 sqM) Est GFR (CKD-EPI)NonAf (>60 ml/min/1.73 sqM) Glucose (74-99) mg/dL Plasma Lactic Acid [place] (0.7-2.0) mmol/L Calcium (8.4-10.2) mg/dL Magnesium (1.6-2.3) mg/dL Total Bilirubin (0.2-1.3) mg/dL AST (14-36) U/L ALT (4-34) U/L Alkaline Phosphatase (38-126) U/L Ammonia (<30) umol/L Troponin I (0.000-0.034) ng/mL Total Protein (6.3-8.2) g/dL Albumin (3.5-5.0) g/dL Urine Color Light Yellow Urine Appearance Clear (Clear) Urine pH 7.5 (5.0-8.0) Ur Specific [place] 1.012 (1.001-1.035) Urine Protein Negative (Negative) Urine Glucose (UA) Negative (Negative) Urine Ketones Negative (Negative) Urine Blood Negative (Negative) Urine Nitrite Negative (Negative) Urine Bilirubin Negative (Negative) Urine Urobilinogen <2.0 (<2.0) mg/dL Ur Leukocyte Esterase Negative (Negative) 06/10/20 06/10/20 06/10/20 Range/Units 15:52 15:52 15:52 WBC (3.8-10.6) k/uL RBC (3.80-5.40) m/uL Hgb (11.4-16.0) gm/dL Hct (34.0-46.0) % MCV (80.0-100.0) fL MCH (25.0-35.0) pg MCHC (31.0-37.0) g/dL RDW (11.5-15.5) % Plt Count (150-450) k/uL Neutrophils % % Lymphocytes % % Monocytes % % Eosinophils % % Basophils % % Neutrophils # (1.3-7.7) k/uL Lymphocytes # (1.0-4.8) k/uL Monocytes # (0-1.0) k/uL Eosinophils # (0-0.7) k/uL Basophils # (0-0.2) k/uL PT (9.0-12.0) sec INR (<1.2) APTT (22.0-30.0) sec Sodium 137 (137-145) mmol/L Potassium 4.9 (3.5-5.1) mmol/L Chloride 105 (98-107) mmol/L Carbon Dioxide 27 (22-30) mmol/L Anion Gap 5 mmol/L BUN 22 H (7-17) mg/dL Creatinine 0.67 (0.52-1.04) mg/dL Est GFR (CKD-EPI)AfAm >90 (>60 ml/min/1.73 sqM) Est GFR (CKD-EPI)NonAf 85 (>60 ml/min/1.73 sqM) Glucose 96 (74-99) mg/dL Plasma Lactic Acid [place] 1.3 (0.7-2.0) mmol/L Calcium 9.1 (8.4-10.2) mg/dL Magnesium 2.2 (1.6-2.3) mg/dL Total Bilirubin 0.5 (0.2-1.3) mg/dL AST 37 H (14-36) U/L ALT 17 (4-34) U/L Alkaline Phosphatase 67 (38-126) U/L Ammonia <9 (<30) umol/L Troponin I <0.012 (0.000-0.034) ng/mL Total Protein 7.2 (6.3-8.2) g/dL Albumin 3.9 (3.5-5.0) g/dL Urine Color Urine Appearance (Clear) Urine pH (5.0-8.0) Ur Specific [place] (1.001-1.035) Urine Protein (Negative) Urine Glucose (UA) (Negative) Urine Ketones (Negative) Urine Blood (Negative) Urine Nitrite (Negative) Urine Bilirubin (Negative) Urine Urobilinogen (<2.0) mg/dL Ur Leukocyte Esterase (Negative) 06/10/20 16:23 EKG performed at 1601 shows normal sinus rhythm left axis deviation. Minimal dysmetria for LVH may be normal variant. Anterior infarct age indeterminate. Ventricular rate of 73 bpm. Intervals 150 ms. Stressors and 72 ms. QT QTc is 376/414 ms. (Olivia Govea) - Radiology Data As x-rays negative for acute cardio pulmonary disease. Cervical atrophy and chronic small vessel ischemia changes. No acute intracranial abnormality. (Olivia Govea) Disposition <Kike Mike - Last Filed: 06/10/20 18:40> Is patient prescribed a controlled substance at d/c from ED?: No Time of Disposition: 19:08 <Olivia Govea - Last Filed: 06/10/20 19:08> Clinical Impression: Unresponsive episode Disposition: ADMITTED IP TO THIS HOSP Condition: Good Additional Instructions: Please use medication as discussed. Please follow up with family doctor if symptoms have not improved over the next two days. Please return to the emergency room if your symptoms increase or worsen or for any other concerns. Referrals: Belle Cristina MD [Primary Care Provider] - 1-2 days
[2020-06-10 16:05] LABS: Basophils % (A) 1 %; Eosinophils # (A) 0.1 k/uL (0-0.7); Eosinophils % (A) 2 %; HCT 43.8 % (34.0-46.0); HGB 14.3 gm/dL (11.4-16.0); Lymphocytes # (A) 1.9 k/uL (1.0-4.8); Lymphocytes % (A) 28 %; MCH 31.8 pg (25.0-35.0); MCHC 32.7 g/dL (31.0-37.0); MCV 97.2 fL (80.0-100.0); Mean Platelet Volume 7.9; Monocytes # (A) 0.4 k/uL (0-1.0); Monocytes % (A) 6 %; Neutrophils # (A) 4.2 k/uL (1.3-7.7); Neutrophils % (A) 61 %; Platelet Count 198 k/uL (150-450); RDW 12.6 % (11.5-15.5); WBC 6.9 k/uL (3.8-10.6)
[2020-06-10 16:12] LABS: ALT 17 U/L (4-34); AST 37 U/L (14-36); African American GFR (CKD) >90 (>60 ml/min/1.73 sqM); Albumin 3.9 g/dL (3.5-5.0); Alkaline Phosphatase 67 U/L (38-126); Anion Gap 5 mmol/L; Blood Urea Nitrogen 22 mg/dL (7-17); Calcium 9.1 mg/dL (8.4-10.2); Carbon Dioxide 27 mmol/L (22-30); Chloride 105 mmol/L (98-107); Glucose 96 mg/dL (74-99); Magnesium 2.2 mg/dL (1.6-2.3); Non-African American GFR(CKD) 85 (>60 ml/min/1.73 sqM); Potassium 4.9 mmol/L (3.5-5.1); Sodium 137 mmol/L (137-145); Total Bilirubin 0.5 mg/dL (0.2-1.3); Total Protein 7.2 g/dL (6.3-8.2)
[2020-06-10 16:13] LABS: Lactic Acid, Venous 1.3 mmol/L (0.7-2.0)
[2020-06-10 16:27] LABS: INR 0.9 (<1.2); Prothrombin Time 9.6 sec (9.0-12.0)
[2020-06-10 16:29] LABS: Partial Thromboplastin Time 21.7 sec (22.0-30.0)
--- NOTE | 2020-06-10 16:34 | XR ---
EXAMINATION TYPE: XR chest 2V DATE OF EXAM: 06/10/2020 COMPARISON: 06/06/2019 HISTORY: Shortness of breath TECHNIQUE: Frontal and lateral views of the chest are obtained. FINDINGS: Scattered senescent parenchymal changes noted. Hyperinflation compatible with COPD. No evidence for infiltrate. No evidence for atelectasis. Heart size is stable. Mediastinal structures are stable and grossly unremarkable. No evidence for hilar prominence. Degenerative changes dorsal spine. IMPRESSION: 1. No evidence for acute pulmonary disease.
--- NOTE | 2020-06-10 16:45 | CT ---
EXAMINATION TYPE: CT brain wo con DATE OF EXAM: 06/10/2020 COMPARISON: None HISTORY: unresponsive episode, lethargic CT DLP: 1052.4 mGycm Automated exposure control for dose reduction was used. There is moderate diffuse cerebral atrophy. There is no mass effect nor midline shift. There is no si gn of intracranial hemorrhage. There is some white matter hypodensity around the frontal horns of the lateral ventricles. Calvarium is intact. The skull base is intact. There is normal aeration of the m astoid sinuses. Sella turcica is normal. IMPRESSION: Cerebral atrophy and chronic small vessel ischemia. No acute intracranial abnormality.
[2020-06-10 17:54] LABS: Appearance,Urine Clear (Clear); Bilirubin,Urine Negative (Negative); Blood,Urine Negative (Negative); Color,Urine Light Yellow; Glucose,Urine (UA) Negative (Negative); Ketones,Urine Negative (Negative); Leukocyte Esterase,Urine Negative (Negative); Nitrite,Urine Negative (Negative); PH, Urine 7.5 (5.0-8.0); Protein,Urine Negative (Negative); Specific Gravity,Urine 1.012 (1.001-1.035); Urobilinogen,Urine <2.0 mg/dL (<2.0)
[2020-06-10] MEDS ORDERED: ACETAMINOPHEN TAB 325 MG TAB PO PRN (19:12)
[2020-06-10] MEDS ORDERED: NALOXONE 0.4 MG/ML 1 ML VIAL IV PRN (19:12)
[2020-06-10] MEDS ORDERED: ONDANSETRON 4 MG/2 ML VIAL IVP PRN (19:12)
[2020-06-10] MEDS ORDERED: IBUPROFEN 400 MG TAB PO PRN (19:12)
[2020-06-10] MEDS ORDERED: risperiDONE 0.5 MG TAB PO SCH (21:00)
--- NOTE | 2020-06-10 22:01 | P.HPIM ---
History of Present Illness H&P Date: 06/10/20 Chief Complaint: Altered mental status, unresponsive, possible new onset of seizure, TIA, wo 79-year-old female one of for office patient with past medical history of Parkinson disease, bilateral breast cancer, worsening dementia and osteoporosis found to have history of hypertension and edema apparently family start her back on start path lasted 3 days as an adult daycare for cognitive impairment. Around 3:00 the went to pick her up when the staff was not able to wake patient up she was unresponsive at the time after several trial ended up calling EMS EMT was able to walk her up with sternal rub the patient ended up going back to sleep continue not to act herself not been able to stand up walk or ambulate. Patient made it to the emergency department at [facility] where was seen and evaluated lab did not show any major abnormality patient has no recall for the whole event still not able to stand up or walk with severe generalized weakness. CAT scan of the brain showed significant atrophy with no new finding. Patient will be kept in the hospital be seen urology going for EEG workup in TIA workup including echo and carotid along with Holter monitor. My had discussed with the the finding and the plan for now patient still not at full comprehension both with her memory loss and with this current event. According to a suspect might have seizure in the past that never been firmer diagnosis. Review of Systems CONSTITUTIONAL: Well-developed no acute respiratory distress. EYES: No icterus sclerae, no conjunctivitis. EARS, NOSE, MOUTH, THROAT, and FACE: No sore throat, lymphadenopathy, carotid bruits or deformity. RESPIRATORY: Mild shortness of breath no cough wheezes. CARDIOVASCULAR: Mild palpitation with no anginasignificant chest pain. GASTROINTESTINAL: No Abd pain, Nausea or vomiting, no Diarrhea or constipation, No GI Bleed, no distention or masses. GENITOURINARY: Positive incontinence was no sign of stone. INTEGUMENT/BREAST: Negative for any muscular injury with mild osteoarthritis.. HEMATOLOGIC/LYMPHATIC: Negative for bleed or purpura. MUSCULOSKELTAL: Negative for Myalgia or arthralgia. NEURLOGICAL: Significant dementia with abnormal balancing gait. BEHAVIORAL/PSYCH: Significant dementia. ENDOCRINE: Negative. Past Medical History Past Medical History: Cancer, Dementia Additional Past Medical History / Comment(s): Breast CA, liver failure with resolution, Parkinsons, History of Any Multi-Drug Resistant Organisms: None Reported Past Surgical History: Hysterectomy Additional Past Surgical History / Comment(s): bilateral mastectomy, trigger finger right side, bilat bunectomy Past Anesthesia/Blood Transfusion Reactions: No Reported Reaction Past Psychological History: No Psychological Hx Reported Smoking Status: Unknown if ever smoked Past Alcohol Use History: None Reported Past Drug Use History: None Reported Medications and Allergies Home Medications Medication Instructions Recorded Confirmed Type Alendronate Sodium [Fosamax] 70 mg PO MO 06/06/19 06/10/20 History Carbidopa/Levodopa [Sinemet CR 1 tab PO BID 06/06/19 06/10/20 History 50-200 mg] Memantine HCl [Namenda] 5 mg PO DAILY 06/06/19 06/10/20 History Cholecalciferol [Vitamin D3 (25 1,000 unit PO DAILY 09/02/19 06/10/20 History Mcg = 1000 Iu)] Mirabegron [Myrbetriq] 50 mg PO DAILY 06/10/20 06/10/20 History Pimavanserin Tartrate [Nuplazid] 34 mg PO DAILY 06/10/20 06/10/20 History risperiDONE [RisperDAL] 0.5 mg PO BID 06/10/20 06/10/20 History Allergies Allergy/AdvReac Type Severity Reaction Status Date / Time naproxen sodium [From Aleve] Allergy FIXED DRUG Verified 09/02/19 14:09 ERUPTION sulfamethoxazole Allergy FIXED DRUG Verified 09/02/19 14:09 [From Bactrim] ERUPTION Physical Exam Vitals: Vital Signs Temp Pulse Pulse Resp BP BP Pulse Ox 06/10/20 20:55 98.2 F 62 16 128/72 95 06/10/20 18:22 73 16 137/82 96 06/10/20 15:24 98.8 F 78 16 151/99 98 Intake and Output 06/10/20 06/10/20 06/10/20 06:59 14:59 22:59 Other: Weight 51.71 kg General Appearance: Alert with significant confusion, worsening dementia and tremor. Neck HEENT: Supple, no lymphadenopathy, no thyroid enlargement, no carotid bruits. Lungs: Decreased breath some bilateral fine rhonchi no crackles or wheezes. Chest Wall: Decrease expansion with deep inspiration no tenderness and no deformity was found on exam, no costochondral pain or discomfort. Heart: Regular rate and rhythm, S1, S2 positive systolic murmur that takes this 3. Back: Symmetric, no curvature, ROM normal, no CVA tenderness. Abdomen: Soft, non-tender, bowel sounds active all four quadrants, no masses, no organomegaly. Extremities: Extremities normal, atraumatic, no cyanosis or edema. Pulses: 2+ and symmetric. Skin: Skin color, texture, tugor normal, no rashes or lesions. Neurologic: Alert with significant confusion had mild resting tremor significant abnormal Parkinsonian expression significant abnormal balance and gait not been able to stand up and walk at this point. Results CBC & Chem 7: 06/10/20 15:52 06/10/20 15:52 Labs: Abnormal Lab Results - Last 24 Hours (Table) 06/10/20 06/10/20 Range/Units 15:52 15:52 APTT 21.7 L (22.0-30.0) sec BUN 22 H (7-17) mg/dL AST 37 H (14-36) U/L Thrombosis Risk Factor Assmnt - DVT/VTE Prophylaxis DVT/VTE Prophylaxis: Pharmacologic Prophylaxis ordered, Mechanical Prophylaxis ordered - Choose All That Apply Any of the Below Risk Factors Present?: No Other Risk Factors: Yes Each Risk Factor Represents 3 Points: Age 75 years or older Thrombosis Risk Factor Assessment Total Risk Factor Score: 3 Thrombosis Risk Factor Assessment Level: Moderate Risk Assessment and Plan Assessment: 1 syncope: Not clear etiology patient be admitted to the hospital continue threat monitoring analyst echo carotid ultrasound will be done CAT scan of the brain was already confirm we'll consult cardiology for any further workup patient and meanwhile remain on beta heidi. 2 Unresponsive? Off seizure versus TIA: Patient be going for EEG CAT scan of the brain already done we'll consult neurology if for any reason continue to have recurrent episode will do trial of antiseizure medication. 3 worsening dementia: Patient has been on Aricept and Namenda continue medication with acute change she wanted to might make her symptoms slightly bit worse for now. 4 Parkinson disease: Patient remain on Sinemet. 5 chronic depression with behavioral problem and worsening dementia: Patient remain on risperidone along with Nuplazid will continue medication. 6 possible seizure: Patient will have an EEG for now awaiting for neuro consultation. 7 history of bilateral breast cancer: Post resection still seen oncology. 8 osteoporosis: Remain on Fosamax along with calcium and vitamin D. 9 GI prophylaxis: Patient will be on Pepcid 20 mg daily. 10 DVT prophylaxis: Patient will be on. CODE STATUS: Full code. Admit patient to inpatient service for 1-2 nights stay.
[2020-06-10] MEDS: CARBIDOPA-LEVODOPA ER 50-200MG 1 EACH TABLET.ER PO SCH (22:15)
[2020-06-10] MEDS: risperiDONE 1 MG TAB PO SCH (22:15)
[2020-06-10] MEDS: SODIUM CHLORIDE 0.9% 1,000 ML IV SCH (22:15)
--- NOTE | 2020-06-10 22:30 | US ---
EXAMINATION TYPE: US carotid duplex BILAT DATE OF EXAM: 06/10/2020 COMPARISON: CT CLINICAL HISTORY: carotid stenosis. Carotid stenosis. EXAM MEASUREMENTS: RIGHT: Peak Systolic Velocity (PSV) cm/sec ----- Right CCA: 93.6 ----- Right ICA: 96.5 ----- Right ECA: 103.0 ICA/CCA ratio: 1.0 RIGHT: End Diastole cm/sec ----- Right CCA: 21.1 ----- Right ICA: 16.3 ----- Right ECA: 9.8 LEFT: Peak Systolic Velocity (PSV) cm/sec ----- Left CCA: 98.7 ----- Left ICA: 90.5 ----- Left ECA: 105.8 ICA/CCA ratio: 0.9 LEFT: End Diastole cm/sec ----- Left CCA: 19.8 ----- Left ICA: 22.3 ----- Left ECA: 15.7 VERTEBRALS (direction of flow): Right Vertebral: Antegrade Left Vertebral: Antegrade Rhythm: Arrhythmia- Image #45. Intimal thickening seen bilaterally. Hyperechoic plaque seen within bilateral carotid bifurcations. I ncreased amount of plaque seen right prox ICA. No elevated velocities at this time. IMPRESSION: There is antegrade flow in the vertebral arteries. There is bilateral plaque formation a t the carotid artery bifurcations. The images and measurements suggest 30% stenosis in both internal carotid arteries. Criteria for Assigning % of Stenosis / Diameter reduction (Estimation based on the indirect measurements of the internal carotid artery velocities (ICA PSV). 1. Normal (no stenosis)=ICA PSV < 125 cm/s: ratio < 2.0: ICA EDV<40 cm/s. 2. Less than 50% stenosis=ICA PSV < 125 cm/s: ratio < 2.0: ICA EDV<40 cm/s. 3. 50 to 69% stenosis=ICA PSV of 125 to 230 cm/s: ration 2.0 ? 4.0: ICA EDV 40-100 cm/s. 4. Greater than 70% stenosis to near occlusion= ICA PSV > 230 cm/s: ratio > 4.0: ICA EDV > 100 cm/s. 5. Near occlusion= ICA PSV velocities may be low or undetectable: variable ratio and ICA EDV. 6. Total occlusion=unable to detect flow.
[2020-06-10 23:40] LABS: Glucose,Whole Blood 118 mg/dL (75-99)
[2020-06-11] MEDS: SODIUM CHLORIDE 0.9% 1,000 ML IV SCH ×2 (06:21→17:41)
[2020-06-11 06:57] LABS: Basophils % (A) 0 %; Eosinophils % (A) 0 %; HCT 42.2 % (34.0-46.0); HGB 13.8 gm/dL (11.4-16.0); Lymphocytes % (A) 24 %; MCH 31.8 pg (25.0-35.0); MCHC 32.6 g/dL (31.0-37.0); MCV 97.4 fL (80.0-100.0); Mean Platelet Volume 7.6; Monocytes # (A) 0.3 k/uL (0-1.0); Monocytes % (A) 4 %; Neutrophils # (A) 5.8 k/uL (1.3-7.7); Neutrophils % (A) 69 %; Platelet Count 213 k/uL (150-450); RBC 4.33 m/uL (3.80-5.40); RDW 12.5 % (11.5-15.5); WBC 8.4 k/uL (3.8-10.6)
[2020-06-11 07:22] LABS: Glucose,Whole Blood 102 mg/dL (75-99)
[2020-06-11] MEDS: PANTOPRAZOLE 40 MG/10 ML VIAL IV SCH (08:01)
[2020-06-11] MEDS: risperiDONE 1 MG TAB PO SCH (08:01)
[2020-06-11] MEDS: CARBIDOPA-LEVODOPA ER 50-200MG 1 EACH TABLET.ER PO SCH ×2 (08:01→21:16)
[2020-06-11] MEDS: CHOLECALCIFEROL 1,000 UNIT TAB PO SCH (08:01)
[2020-06-11] MEDS: MEMANTINE 5 MG TAB PO SCH (08:01)
[2020-06-11] MEDS ORDERED: FAMOTIDINE 20 MG TAB PO SCH (09:00)
[2020-06-11 09:34] LABS: ALT <8 U/L (8-44); AST 30 U/L (13-35); African American GFR (CKD) 101.2 (60.0-200.0); Albumin/Globulin Ratio 1.52 (1.60-3.17); Alkaline Phosphatase 65 U/L (41-126); Calcium 8.4 mg/dL (8.7-10.3); Chloride 105 mmol/L (96-109); Globulin 2.5 g/dL (1.6-3.3); Glucose 103 mg/dL (70-110); Non-African American GFR(CKD) 87.3 (60.0-200.0); Potassium 4.1 mmol/L (3.5-5.5); Sodium 139 mmol/L (135-145); Total Bilirubin 0.6 mg/dL (0.2-1.2); Total Protein 6.3 g/dL (6.2-8.2)
[2020-06-11] MEDS: PIMAVANSERIN TARTRATE PO SCH (10:30)
[2020-06-11] MEDS: HEPARIN SODIUM,PORCINE 5,000 UNIT/ML 1 ML VIAL SQ SCH ×2 (10:31→21:17)
[2020-06-11] MEDS: Mirabegron [Myrbetriq] PO SCH (10:31)
--- NOTE | 2020-06-11 11:27 | P.CNNES ---
History of Present Illness Consult date: 06/11/20 Requesting physician: Olivia Govea Reason for Consult: Unresponsive episode History of Present Illness: Patient is a 79-year-old female with history of Parkinson's disease, and dementia, came to the hospital yesterday at 3:20 PM by ambulance due to episode of unresponsiveness and significant lethargy. Patient was at her adult day care facility and was sitting in the chair. The director of nurse had mentioned that patient was napping in the chair. They tried to wake her up and was unable to. Her came over to pick her up and was also unable to wake her up. Eventually baccarat dealer were called and she responded to 2-3 sternal rub, but still was lethargic. It almost took 20 minutes for her to be waken up, which is extremely unusual. She never had episode of unresponsive like this. No seizure like activity was reported, no tongue bite. Her vital signs at the scene were blood pressure 156/86, pulse rate 70, respiration 18 saturation 98%. Blood sugar was 114. She recently has increase in the night dose of Risperdal. No focal symptoms for noted by EMT staff. Vital signs on arrival blood pressure 151/99, pulse rate 78 temperature 98.8. Computed tomography scan of head showed cerebral atrophy and chronic small vessel ischemia. No acute process. Chest x-ray normal. EKG with normal sinus rhythm. Left axis deviation, minimal voltage criteria for LVH. Anterior infarct age undetermined. Patient had a carotid Doppler performed, which revealed antegrade flow in vertebral arteries. There is bilateral plaque formation at the carotid artery bifurcations. The images and measurements suggest 30% stenosis in both ICA. Patient had normal CBC, PT/PTT, Chem-20. Her last B12 483 on 01/01/2018, TSH normal on 01/29/2019. RPR negative. HIV negative. Patient has Parkinson's disease, on Sinemet CR 50/200, twice a day. Patient follows up with Dr. Lim office. Patient was on Sinemet 50/200 three times a day, however the dose was decreased to Sinemet 50/200 twice a day on 05/29/2020. Patient also has severe anxiety problem. Patient was tried on Seroquel, Ativan and some other medications but did not work. She was also started on Nuplazid, but did not resolve the anxiety. Finally she was placed on Risperdal 0.5 mg twice a day, which significantly helped with her anxiety. A few weeks ago, patient started having problems with anxiety at night. The night dose of Risperdal was increased to 1 mg on 05/29/2020, whereas she was continued on Risperdal 0.5 mg in the daytime. Patient also has dementia, and her describes it as early part of late stage dementia. Her has noticed that since the dose of Sinemet has been decreased to twice a day, the tremors and Parkinsonian symptoms have gotten worse. Patient also on Namenda 5 mg daily, risperidone 0.5 mg twice a day and Nuplazid 34 mg daily. Review of Systems Patient denies any chest pain shortness of breath wheezing or cough. Denies any abdominal pain nausea vomiting diarrhea. Denies double vision or loss of vision. Patient has gait issues. No previous history of seizures. Past Medical History Past Medical History: Cancer, Dementia Additional Past Medical History / Comment(s): Breast CA, liver failure with resolution, Parkinsons, History of Any Multi-Drug Resistant Organisms: None Reported Past Surgical History: Hysterectomy Additional Past Surgical History / Comment(s): bilateral mastectomy, trigger finger right side, bilat bunectomy Past Anesthesia/Blood Transfusion Reactions: No Reported Reaction Past Psychological History: No Psychological Hx Reported Smoking Status: Unknown if ever smoked Past Alcohol Use History: None Reported Past Drug Use History: None Reported Medications and Allergies Home Medications Medication Instructions Recorded Confirmed Type Alendronate Sodium [Fosamax] 70 mg PO MO 06/06/19 06/10/20 History Carbidopa/Levodopa [Sinemet CR 1 tab PO BID 06/06/19 06/10/20 History 50-200 mg] Memantine HCl [Namenda] 5 mg PO DAILY 06/06/19 06/10/20 History Cholecalciferol [Vitamin D3 (25 1,000 unit PO DAILY 09/02/19 06/10/20 History Mcg = 1000 Iu)] Mirabegron [Myrbetriq] 50 mg PO DAILY 06/10/20 06/10/20 History Pimavanserin Tartrate [Nuplazid] 34 mg PO DAILY 06/10/20 06/10/20 History risperiDONE [RisperDAL] 0.5 mg PO BID 06/10/20 06/10/20 History Allergies Allergy/AdvReac Type Severity Reaction Status Date / Time naproxen sodium [From Aleve] Allergy FIXED DRUG Verified 09/02/19 14:09 ERUPTION sulfamethoxazole Allergy FIXED DRUG Verified 09/02/19 14:09 [From Bactrim] ERUPTION Physical Examination - Vital Signs Vital Signs: Vital Signs Temp Pulse Pulse Resp BP BP Pulse Ox 06/11/20 05:07 97.8 F 83 16 121/78 97 06/10/20 20:55 98.2 F 62 16 128/72 95 06/10/20 18:22 73 16 137/82 96 06/10/20 15:24 98.8 F 78 16 151/99 98 Intake and Output 06/10/20 06/11/20 06/11/20 22:59 06:59 14:59 Intake Total 1100 Balance 1100 Intake: Intake, IV Titration 900 Amount Sodium Chloride 0.9% 1, 900 000 ml @ 100 mls/hr IV . Q10H [facility] Rx#:[id number] Oral 200 Other: Voiding Method Toilet Diaper Incontinent # Voids 1 Weight 51.71 kg On examination patient is an elderly female, laying comfortably in the bed. Patient appears obviously parkinsonian, with masklike face. She has decreased frequency of blinking. Patient has hypomimia. Speech is clear with no aphasia or dysarthria. When I asked what month is it, states "Monday". Patient could not tell name of the current president. She states the year is 20. After repeated attempts with some prompts by her , patient was able to say that she is in [place]. On cranial nerve examination pupils are round and reactive to light, visual rocha are full on confrontation, extraocular muscles are intact with no nystagmus. Face is symmetric, tongue protrudes the midline. Palatal elevation and sensation normal. Hearing is slightly decreased, shoulder shrug normal. Facial sensation normal on muscle strength testing there is no pronator drift. The strength appears fairly normal in the arms and legs. Reflexes are 1+ and plantars are downgoing. Sensory touch is equal. Tone is increased moderately bilaterally. Patient has almost constant tremors at rest of both upper limbs, mild to moderate degree, she also has chin tremor. No ataxia for [id number] testing. Bulk of muscles is normal. Gait deferred. There is no carotid bruit, S1 and S2 audible. Peripheral pulses are present. No edema. Abdomen soft, chest clear. Results - Laboratory Findings CBC and BMP: 06/11/20 06:25 06/11/20 06:25 Abnormal Lab Findings: Abnormal Labs 06/10/20 06/10/20 06/10/20 15:52 15:52 23:19 APTT 21.7 L BUN 22 H POC Glucose (mg/dL) 118 H AST 37 H 06/11/20 07:18 APTT BUN POC Glucose (mg/dL) 102 H AST Assessment and Plan Assessment: * Syncopal spell, probably orthostatic/vasovagal. Seizure also in the differential although less likely. * Parkinson's disease, at least moderate in degree. * Dementia. * Anxiety disorder. Plan: * Patient has Parkinson's disease, and Risperdal can make parkinsonism worse. At present she has at least moderate to severe parkinsonian features. She is currently on Risperdal 0.5 mg in the morning and 1 mg at night. Risperdal is also quite sedating, which can also be contributing to this spell of unresponsiveness. I would suggest decreasing Risperdal to 0.25 mg in the morning and 0.5 mg in the evening. * We will also start regular Sinemet 25/100, 1 tablet in the midday. * EEG has been completed, will review the results. * Carotid Doppler showed no significant stenosis. * 2-D echo is also pending. * PT and OT evaluate gait. * Discussed with patient's , we will follow while in the hospital.
--- NOTE | 2020-06-11 11:28 | P.PN ---
Subjective Progress Note Date: 06/11/20 HISTORY OF PRESENT ILLNESS 79-year-old female one of for office patient with past medical history of Parkinson disease, bilateral breast cancer, worsening dementia and osteoporosis found to have history of hypertension and edema apparently family start her back on start path lasted 3 days as an adult daycare for cognitive impairment. Around 3:00 the went to pick her up when the staff was not able to wake patient up she was unresponsive at the time after several trial ended up calling EMS EMT was able to walk her up with sternal rub the patient ended up going back to sleep continue not to act herself not been able to stand up walk or ambulate. Patient made it to the emergency department at [facility] where was seen and evaluated lab did not show any major abnormality patient has no recall for the whole event still not able to stand up or walk with severe generalized weakness. CAT scan of the brain showed significant atrophy with no new finding. Patient will be kept in the hospital be seen urology going for EEG workup in TIA workup including echo and carotid along with Holter monitor. My had discussed with the the finding and the plan for now patient still not at full comprehension both with her memory loss and with this current event. According to a suspect might have seizure in the past that never been firmer diagnosis. 06/11: Patient is seen on the [facility] floor. Carotid ultrasound reveals bilateral plaque, 30% stenosis in both internal carotid arteries. Repeat CBC is normal. Electrolytes and renal function are normal. Blood sugar 103. Liver function tests normal. Echocardiogram and EEG are pending. Patient has been s een by Dr Michel and discussed case at bedside. He has recommended decreasing Risperdal dosing to 0.25 mg daily and 0.5 at bedtime. Further recommendations to follow. Patient remains confused and is at bedside. Patient has been afebrile, heart rate 83, blood pressure 121/78, pulse ox 97% on room air. REVIEW OF SYSTEMS CONSTITUTIONAL: Well-developed no acute respiratory distress. No fevers. EYES: No icterus sclerae, no conjunctivitis. EARS, NOSE, MOUTH, THROAT, and FACE: No sore throat, lymphadenopathy, carotid bruits or deformity. RESPIRATORY: Mild shortness of breath no cough wheezes. CARDIOVASCULAR: Mild palpitation with no anginasignificant chest pain. GASTROINTESTINAL: No Abd pain, Nausea or vomiting, no Diarrhea or constipation, No GI Bleed, no distention or masses. GENITOURINARY: Positive incontinence was no sign of stone. INTEGUMENT/BREAST: Negative for any muscular injury with mild osteoarthritis.. HEMATOLOGIC/LYMPHATIC: Negative for bleed or purpura. MUSCULOSKELTAL: Negative for Myalgia or arthralgia. NEURLOGICAL: Significant dementia with abnormal balancing gait. BEHAVIORAL/PSYCH: Significant dementia. ENDOCRINE: Negative. PHYSICAL EXAMINATION General Appearance: Alert with significant confusion, worsening dementia and tremor. Neck HEENT: Supple, no lymphadenopathy, no thyroid enlargement, no carotid bruits. Lungs: Decreased breath some bilateral fine rhonchi no crackles or wheezes. Chest Wall: Decrease expansion with deep inspiration no tenderness and no deformity was found on exam, no costochondral pain or discomfort. Heart: Regular rate and rhythm, S1, S2 positive systolic murmur that takes this 3. Back: Symmetric, no curvature, ROM normal, no CVA tenderness. Abdomen: Soft, non-tender, bowel sounds active all four quadrants, no masses, no organomegaly. Extremities: Extremities normal, atraumatic, no cyanosis or edema. Pulses: 2+ and symmetric. Skin: Skin color, texture, tugor normal, no rashes or lesions. Neurologic: Alert with significant confusion had mild resting tremor significant abnormal Parkinsonian expression significant abnormal balance and gait not been able to stand up and walk at this point. ASSESSMENT AND PLAN 1 syncope: Not clear etiology patient be admitted to the hospital continue hospital monitor echo carotid ultrasound will be done CAT scan of the brain was already confirm we'll consult cardiology for any further workup patient and meanwhile remain on beta heidi. 2 Unresponsive? Possible seizure versus TIA. Neurology on consult. EEG has been completed this morning report is pending. Echocardiogram is pending. Decrease Risperdal. 3 worsening dementia: Patient has been on Aricept and Namenda continue medi cation with acute change she wanted to might make her symptoms slightly bit worse for now. 4 Parkinson disease: Patient remain on Sinemet. 5 recurrent depression with behavioral problem and worsening dementia: Patient remain on risperidone along with Nuplazid will continue medication. 6 possible seizure. EEG and neuro consultation. 7 history of bilateral breast cancer: Post resection still seen oncology. 8 osteoporosis: Remain on Fosamax along with calcium and vitamin D. 9 GI prophylaxis: Patient will be on Pepcid 20 mg daily. 10 DVT prophylaxis: Heparin subcu. CODE STATUS: Full code. DISCHARGE PLAN PT, OT, ST evaluations. To be determined Impression and plan of care have been directed as dictated by the signing physician. Sully Matt nurse practitioner acting as scribe for signing physician. Objective - Vital Signs Vital signs: Vital Signs Temp 97.8 F 06/11/20 05:07 Pulse 83 06/11/20 05:07 Resp 16 06/11/20 05:07 BP 121/78 06/11/20 05:07 Pulse Ox 97 06/11/20 05:07 Intake & Output 06/10/20 06/11/20 06/11/20 18:59 06:59 18:59 Intake Total 1100 Balance 1100 Weight 51.71 kg 51.71 kg Intake: Intake, IV Titration 900 Amount Sodium Chloride 0.9% 1, 900 000 ml @ 100 mls/hr IV . Q10H [facility] Rx#:[id number] Oral 200 Other: Voiding Method Toilet Diaper Incontinent # Voids 1 - Labs CBC & Chem 7: 06/11/20 06:25 06/11/20 06:25 Labs: Abnormal Lab Results - Last 24 Hours (Table) 06/10/20 06/10/20 06/10/20 Range/Units 15:52 15:52 23:19 APTT 21.7 L (22.0-30.0) sec BUN 22 H (7-17) mg/dL POC Glucose (mg/dL) 118 H (75-99) mg/dL AST 37 H (14-36) U/L 06/11/20 Range/Units 07:18 APTT (22.0-30.0) sec BUN (7-17) mg/dL POC Glucose (mg/dL) 102 H (75-99) mg/dL AST (14-36) U/L
--- NOTE | 2020-06-11 12:00 | ECHOF ---
Referral Reason:lvfunction MEASUREMENTS -------- HEIGHT: 157.5 cm WEIGHT: 51.7 kg BP: RVIDd: 2.5 cm (< 3.3) IVSd: 1.0 cm (0.6 - 1.1) LVIDd: 2.8 cm (3.9 - 5.3) LVPWd: 1.0 cm (0.6 - 1.1) IVSs: 1.3 cm LVIDs: 1.6 cm LVPWs: 1.7 cm LA Diam: 3.3 cm (2.7 - 3.8) LAESV Index (A-L): 23.36 ml/m MV EXCURSION: 15.618 mm (> 18.000) MV EF SLOPE: 79 mm/s (70 - 150) EPSS: 0.8 cm MV E Asher: 0.36 m/s MV DecT: 180 ms MV A Asher: 0.89 m/s MV E/A Ratio: 0.40 RAP: 5.00 mmHg RVSP: 15.84 mmHg FINDINGS -------- Sinus rhythm. This was a technically adequate study. LV size, wall thickness and systolic function are normal, with an EF greater than 55%. The left jennifer tricular size is normal. The diastolic filling pattern is normal for the age of the patient 8.90. The right ventricle is normal in size. Normal LA size by volume 22+/-6 ml/m2. The right atrial size is normal. There is mild aortic valve sclerosis. There is mild aortic regurgitation. Mild mitral annular calcification present. Mild mitral regurgitation is present. The tricuspid valve appears structurally normal. Mild tricuspid regurgitation present. Right vent ricular systolic pressure is normal at < 35 mmHg. There is no pulmonic regurgitation present. The aortic root size is normal. There is no pericardial effusion. CONCLUSIONS -------- 1. LV size, wall thickness and systolic function are normal, with an EF greater than 55%. 2. The diastolic filling pattern is normal for the age of the patient 8.90 3. Normal LA size by volume 22+/-6 ml/m2. 4. There is mild aortic valve sclerosis. 5. There is mild aortic regurgitation. 6. Mild mitral regurgitation is present. 7. Mild tricuspid regurgitation present. 8. There is no pericardial effusion. TRACTOR MECHANIC: Luana Aaron RDCS
[2020-06-11 12:07] LABS: Glucose,Whole Blood 110 mg/dL (75-99)
[2020-06-11] MEDS: CARBIDOPA-LEVODOPA 25-100 MG 1 EACH TAB PO SCH (12:49)
--- NOTE | 2020-06-11 17:07 | EEG ---
ELECTROENCEPHALOGRAM REPORT DATE OF SERVICE: 06/11/2020 PREAMBLE: This is a 79-year-old female with history of Parkinson's disease and dementia. She was in an adult daycare facility when she was unable to wake up. It took almost 20 minutes for her to be awakened. This study is performed to evaluate for any epileptiform activity. EEG FINDINGS: This is a 21-channel routine EEG recording in a patient utilizing 10-20 international system with referential and bipolar montages. Background consists of well-developed, moderately well regulated, mixed frequency of alpha and theta in 7-8 hertz, posterior- dominant, which does not seem to be clearly reactive to eye opening and closing. There is intermittent moderate to high amplitude 1.5 to 3 hertz delta activity seen in bihemispheric region, which appears at times predominantly in the frontal region bilaterally. Some sleep was seen with the presence of vertex waves and spindles. No focal or generalized epileptiform activity was seen. Photic driving response was seen with some flash frequencies. IMPRESSION: This is an abnormal EEG due to background slowing of mild to moderate degree. This is suggestive of generalized cerebral dysfunction as can be seen with toxic metabolic encephalopathy or due to diffuse structural brain abnormality. No epileptiform activity was seen. MMODL / IJN: [id number] /
[2020-06-11 17:19] LABS: Glucose,Whole Blood 126 mg/dL (75-99)
[2020-06-11 20:31] LABS: Glucose,Whole Blood 115 mg/dL (75-99)
[2020-06-11] MEDS ORDERED: risperiDONE 0.5 MG TAB PO SCH (21:00)
[2020-06-12] MEDS: SODIUM CHLORIDE 0.9% 1,000 ML IV SCH (03:15)
[2020-06-12 07:11] LABS: Glucose,Whole Blood 100 mg/dL (75-99)
[2020-06-12] MEDS: PIMAVANSERIN TARTRATE PO SCH (07:59)
[2020-06-12] MEDS: PANTOPRAZOLE 40 MG/10 ML VIAL IV SCH (08:00)
[2020-06-12] MEDS: CARBIDOPA-LEVODOPA ER 50-200MG 1 EACH TABLET.ER PO SCH (08:00)
[2020-06-12] MEDS: MEMANTINE 5 MG TAB PO SCH (08:00)
[2020-06-12] MEDS: Mirabegron [Myrbetriq] PO SCH (08:01)
[2020-06-12] MEDS: HEPARIN SODIUM,PORCINE 5,000 UNIT/ML 1 ML VIAL SQ SCH (08:01)
[2020-06-12] MEDS: CHOLECALCIFEROL 1,000 UNIT TAB PO SCH (08:01)
[2020-06-12] MEDS ORDERED: risperiDONE 0.25 MG TAB PO SCH (09:00)
--- NOTE | 2020-06-12 10:52 | P.DS ---
Providers Date of admission: 06/11/20 07:40 Expected date of discharge: 06/12/20 Attending physician: Fred Orozco Consults: 06/10/20 19:12 Consult Physician Stat Consulting Provider: Jamal Michel Consult Reason/Comments: unresponsive episode Do you want consulting provider notified?: Yes, Notify in am Primary care physician: Belle Cristina MD Hospital Course: HISTORY OF PRESENT ILLNESS 79-year-old female one of for office patient with past medical history of Parkinson disease, bilateral breast cancer, worsening dementia and osteoporosis found to have history of hypertension and edema apparently family start her back on start path lasted 3 days as an adult daycare for cognitive impairment. Around 3:00 the went to pick her up when the staff was not able to wake patient up she was unresponsive at the time after several trial ended up calling EMS EMT was able to walk her up with sternal rub the patient ended up going back to sleep continue not to act herself not been able to stand up walk or ambulate. Patient made it to the emergency department at [facility] where was seen and evaluated lab did not show any major abnormality patient has no recall for the whole event still not able to stand up or walk with severe generalized weakness. CAT scan of the brain showed significant atrophy with no new finding. Patient will be kept in the hospital be seen urology going for EEG workup in TIA workup including echo and carotid along with Holter monitor. My had discussed with the the finding and the plan for now patient still not at full comprehension both with her memory loss and with this current event. According to a suspect might have seizure in the past that never been firmer diagnosis. 06/11: Patient is seen on the [facility] floor. Carotid ultrasound reveals bilateral plaque, 30% stenosis in both internal carotid arteries. Repeat CBC is normal. Electrolytes and renal function are normal. Blood sugar 103. Liver function tests normal. Echocardiogram and EEG are pending. Patient has been seen by Dr Michel and discussed case at bedside. He has recommended decreasing Risperdal dosing to 0.25 mg daily and 0.5 at bedtime. Further recommendations to follow. Patient remains confused and is at bedside. Patient has been afebrile, heart rate 83, blood pressure 121/78, pulse ox 97% on room air. 06/12: She has been seen and followed by neurology for syncopal spell probably orthostatic or vasovagal. We have adjusted Risperdal as was recommended. Dr. Michel has added Sinemet 25/100 1 tablet in the [place] [id number] twice daily. EEG is abnormal due to background slowing suggestive of toxic metabolic encephalopathy or due to diffuse structural brain abnormality. No epileptiform activity was seen. Echocardiogram reveals EF of greater than 55%, mild aortic regurgitation, mild mitral regurgitation, mild tricuspid regurgitation. Patient has been seen by speech therapy with recommendations for chopped diet and thin liquids via straw. Patient has been afebrile, heart rate 76, blood pressure 136/70, pulse ox 97% on room air. compliance monitor has been in sinus rhythm. Blood sugar running between 101 - 126. A long discussion with the patient's at bedside and in the hallway. He states he has had residential home care in place for the past week but he is asking about hospice care. He would also like Nuplazid stopped as he has not noticed any improvement. He does understand that medication changes yesterday may take some time before he sees the full effect. He is requesting that [facility] be contacted as the patient worked there in the past. clinic office manager updated. Discharge plan will be for today if all arrangements can be completed. ASSESSMENT AND PLAN 1 syncope probably orthostatic or vasovagal. 2 Unresponsive possibly related to worsening Parkinson's with dementia, possible early body dementia developing, possible medication effect from Risperdal worsening symptoms. 3 worsening dementia. 4 Parkinson disease 5 recurrent depression with behavioral problem and worsening dementia 6 possible seizure has been essentially ruled out 7 history of bilateral breast cancer, stable. 8 osteoporosis DISCHARGE PLAN home with [facility] Impression and plan of care have been directed as dictated by the signing physician. Sully Matt nurse practitioner acting as scribe for signing physician. Patient Condition at Discharge: Good Plan - Discharge Summary New Discharge Prescriptions: New risperiDONE [RisperDAL] 0.25 mg PO DAILY tab Carbidopa-Levodopa 25-100 mg [Sinemet 25-100 mg] 1 each PO DAILY@1300 #30 tab Continue Carbidopa/Levodopa [Sinemet CR 50-200 mg] 1 tab PO BID Changed risperiDONE [RisperDAL] 0.5 mg PO HS #0 Discontinued Memantine HCl [Namenda] 5 mg PO DAILY Alendronate Sodium [Fosamax] 70 mg PO MO Cholecalciferol [Vitamin D3 (25 Mcg = 1000 Iu)] 1,000 unit PO DAILY Pimavanserin Tartrate [Nuplazid] 34 mg PO DAILY Mirabegron [Myrbetriq] 50 mg PO DAILY Discharge Medication List Carbidopa/Levodopa [Sinemet CR 50-200 mg] 1 tab PO BID 06/06/19 [History] Carbidopa-Levodopa 25-100 mg [Sinemet 25-100 mg] 1 each PO DAILY@1300 #30 tab 06/12/20 [Rx] risperiDONE [RisperDAL] 0.25 mg PO DAILY tab 06/12/20 [Rx] risperiDONE [RisperDAL] 0.5 mg PO HS #0 06/12/20 [Rx] Follow up Appointment(s)/Referral(s): Belle Cristina MD [Primary Care Provider] - As Needed Discharge Disposition: HOME WITH HOSPICE
[2020-06-12 11:48] VITALS: BP 114/64; PULSE 74; RESP 17; TEMP 98.5
[2020-06-12] MEDS: CARBIDOPA-LEVODOPA 25-100 MG 1 EACH TAB PO SCH (13:35)
--- NOTE | 2020-06-12 15:17 | P.PN ---
Subjective Progress Note Date: 06/12/20 Patient was seen for a follow-up. Patient's was also present. Patient's has mentioned that she is slightly better. Denies any side effects of current medications. Anxiety is well controlled. Patient is ready for discharge. Patient's has requested hospice care, and patient will be going home with hospice care. Objective - Vital Signs Vital signs: Vital Signs Temp 98.5 F 06/12/20 11:48 Pulse 74 06/12/20 11:48 Resp 17 06/12/20 11:48 BP 114/64 06/12/20 11:48 Pulse Ox 96 06/12/20 11:48 Intake & Output 06/11/20 06/12/20 06/12/20 18:59 06:59 18:59 Intake Total 850 1200 Balance 850 1200 Intake: Intake, IV Titration 1200 Amount Sodium Chloride 0.9% 1, 1200 000 ml @ 100 mls/hr IV . Q10H AYALA Rx#:[id number] Oral 850 Other: Voiding Method Toilet Toilet Toilet Diaper Diaper Diaper Incontinent Incontinent Incontinent # Voids 3 2 2 # Bowel Movements 1 - Exam Patient is alert and awake. Her mentation has slightly improved. Tone is increased mild to moderately in the arms. Patient has less tremors at rest and of the chin. - Labs CBC & Chem 7: 06/11/20 06:25 06/11/20 06:25 Labs: Abnormal Lab Results - Last 24 Hours (Table) 06/11/20 06/11/20 06/12/20 Range/Units 17:12 20:29 07:10 POC Glucose (mg/dL) 126 H 115 H 100 H (75-99) mg/dL Assessment and Plan Assessment: * Syncopal spell, probably orthostatic/vasovagal. Seizure also in the differential although less likely. * Parkinson's disease, at least moderate in degree. * Dementia. * Anxiety disorder. Plan: * Patient's dose of Risperdal was decreased yesterday. Patient already showing signs of clinical improvement. * Patient will continue Sinemet CR 50/200 twice a day and regular Sinemet 25/100, 1 tablet in the midday. Patient may be a candidate for Neupro patch. Patient's 's was recommended to discuss with her neurologist about this option in the future. * EEG was abnormal due to background slowing of mild to moderate degree. This is suggestive of generalized cerebral dysfunction as can be seen with toxic metabolic encephalopathy, or due to diffuse structural brain abnormality. No epileptiform activity was seen.. * Carotid Doppler showed no significant stenosis. * 2-D echo showed normal left ventricular size, with EF 55%. Normal left atrial size. Mild aortic valve sclerosis. Mild aortic regurgitation. * Patient being discharged home with hospice care. * Discussed with patient and her in detail.
[2020-06-15] MEDS ORDERED: PATIENT'S OWN (Alendronate Sodium [Fosamax] 70 MG Tablet) PO SCH (07:00)
== END 2020-06-12 15:39 | disposition hospice, home (50) | DRG 312 ==
LOC: EC 15:20 → 6NMEDSUR 18:41 → OBSVTOIN 06-11 07:40
PROVIDERS: ADMIT Internal Medicine Geriatric Medicine; ATTEND Internal Medicine Geriatric Medicine
DX: R55 Syncope and collapse (principal); F02.81 Dementia in other diseases classified elsewhere, unspecified severity, with behavioral disturbance; F33.9 Major depressive disorder, recurrent, unspecified; F41.9 Anxiety disorder, unspecified; G20 Parkinson's disease; I10 Essential (primary) hypertension; M81.0 Age-related osteoporosis without current pathological fracture; Z79.83 Long term (current) use of bisphosphonates; Z79.899 Other long term (current) drug therapy; Z85.3 Personal history of malignant neoplasm of breast; Z90.13 Acquired absence of bilateral breasts and nipples; Z90.710 Acquired absence of both cervix and uterus; R26.9 Unspecified abnormalities of gait and mobility; Z51.5 Encounter for palliative care; Z88.6 Allergy status to analgesic agent; Z88.2 Allergy status to sulfonamides
CPT/HCPCS: 36415; 70450; 71046; 80053; 81003; 82140; 83605; 83735; 84484; 85025; 85610; 85730; 93005; 93306; 93880; 94760; 95819; 96360; 99285